=== PATIENT | female | born 1950 | race Caucasian/White ===

== ENCOUNTER → 2018-10-12 07:45 | Outpatient (CLI) | payer MEDICARE, OTHER, SELFPAY ==
--- NOTE | 2018-10-12 07:50 | DI.US.S_ITS ---
PROCEDURE: US ABDOMEN LIMITED INDICATIONS: liver u/s for surveillance with known cirrhosis TECHNIQUE: Real-time focused scanning was performed of the abdomen, with image documentation. COMPARISON: [facility], CT, ABDOMEN/PELVIS WITH CONTRAST, 02/26/2017, 2:20. FINDINGS: Liver is atrophic, course in echotexture and there is irregularity involving the hepatic capsule. No focal discrete hepatic mass. Limited Doppler assessment demonstrates hepatopedal flow within the main portal vein. IMPRESSION: Cirrhotic hepatic morphology redemonstrated and no discrete liver mass is seen. Dictated by: Joby Estrada [facility] Interpreted: Alex Chamorro MD on 10/12/2018 at 10:17 Approved by: Alex Chamorro M.D. on 10/12/2018 at 10:45
== END ==
PROVIDERS: PCP Family Medicine; Visit Provider Family Medicine
DX: K74.60 Unspecified cirrhosis of liver (principal)
CPT/HCPCS: 76705

== ENCOUNTER → 2018-10-26 11:16 | Outpatient (CLI) | payer MEDICARE, OTHER, SELFPAY ==
[2018-10-26 12:26] LABS: Add Manual Diff / Slide Review NO; Basophils Absolute Auto 100 /uL (0-100); Basophils Percent Auto 0.8 % (0-2); Eosinophils Absolute Auto 100 /uL (0-450); Eosinophils Percent Auto 1.6 % (2-4); Hematocrit 40.1 % (36-46); Hemoglobin 13.3 g/dL (12.0-16.0); Lymphocytes Absolute Auto 1800 /uL (1100-4500); Lymphocytes Percent Auto 24.8 % (25-40); Mean Corpuscular HGB Conc 33.1 % (30-36); Mean Corpuscular Hemoglobin 34.1 PG (26-34); Monocytes Absolute Auto 700 /uL (0-900); Monocytes Percent Auto 9.3 % (3-14); Neutrophils Absolute Auto 4600 /uL (1500-7000); Neutrophils Percent Auto 63.5 % (50-75); Platelet Count 292 X10^3/uL (150-400); Red Cell Distribution Width 13.7 % (11.6-14.8); White Blood Cell Count 7.3 X10^3/uL (4.5-11.0)
[2018-10-26 14:07] LABS: Magnesium 1.9 mg/dL (1.6-2.3)
[2018-10-26 14:08] LABS: Alanine Aminotransferase 56 IU/L (9-52); Albumin 4.5 g/dL (3.5-5.0); Albumin Globulin Ratio 1.3 (1.0-2.8); Alkaline Phosphatase 288 U/L (38-126); Aspartate Aminotransferase 57 IU/L (14-36); Bilirubin Total 2.3 mg/dL (0.2-1.3); Blood Urea Nitrogen 8 mg/dL (7-17); Carbon Dioxide 25 mmol/L (22-32); Chloride 101 mmol/L (98-107); Estimated Glomerular Filt Rate > 60.0 mL/min (>60); Globulin 3.4 g/dL (1.7-4.1); Glucose 121 mg/dL (80-110); HEMOLYSIS < 15 (0-50); Potassium 4.2 mmol/L (3.4-5.1); Sodium 140 mmol/L (137-145); Total Protein 7.9 g/dL (6.3-8.2)
[2018-10-26 14:40] LABS: Thyroid Stimulating Hormone 4.49 uIU/mL (0.47-4.68)
[2018-10-29 15:27] LABS: Lipoprofile NMR SEE SEPERATE REPORT
[2018-10-30 15:18] LABS: Alpha Fetoprotein 6.1 ng/mL (< 6.1)
== END ==
PROVIDERS: Family Provider Family Medicine; PCP Family Medicine; Visit Provider Specialist
DX: E78.2 Mixed hyperlipidemia (principal); I10 Essential (primary) hypertension; F10.20 Alcohol dependence, uncomplicated; N28.9 Disorder of kidney and ureter, unspecified; K74.60 Unspecified cirrhosis of liver; E03.9 Hypothyroidism, unspecified
CPT/HCPCS: 36415; 80053; 82105; 83704; 83735; 84443; 85025

== ENCOUNTER → 2018-12-20 13:10 | Outpatient (CLI) | payer MEDICARE, OTHER, SELFPAY ==
[2018-12-20 14:05] LABS: Alanine Aminotransferase 48 IU/L (9-52); Albumin 4.5 g/dL (3.5-5.0); Albumin Globulin Ratio 1.2 (1.0-2.8); Alkaline Phosphatase 278 U/L (38-126); Aspartate Aminotransferase 61 IU/L (14-36); BUN Creatinine Ratio 21.1 (6-22); Bilirubin Total 1.6 mg/dL (0.2-1.3); Blood Urea Nitrogen 19 mg/dL (7-17); Carbon Dioxide 28 mmol/L (22-32); Chloride 103 mmol/L (98-107); Estimated Glomerular Filt Rate > 60.0 mL/min (>60); Globulin 3.9 g/dL (1.7-4.1); Glucose 108 mg/dL (80-110); HEMOLYSIS < 15 (0-50); Magnesium 2.3 mg/dL (1.6-2.3); Potassium 4.7 mmol/L (3.4-5.1); Sodium 140 mmol/L (137-145); Total Protein 8.4 g/dL (6.3-8.2)
== END ==
PROVIDERS: Family Provider Family Medicine; PCP Family Medicine; Visit Provider Specialist
DX: R94.5 Abnormal results of liver function studies (principal); I10 Essential (primary) hypertension
CPT/HCPCS: 36415; 80053; 83735

== ENCOUNTER → 2019-02-07 15:50 | Outpatient (CLI) | payer MEDICARE, OTHER, SELFPAY ==
[2019-02-07 16:20] LABS: Add Manual Diff / Slide Review NO; Basophils Absolute Auto 100 /uL (0-100); Basophils Percent Auto 0.7 % (0-2); Eosinophils Absolute Auto 100 /uL (0-450); Eosinophils Percent Auto 1.2 % (2-4); Hematocrit 38.2 % (36-46); Hemoglobin 12.8 g/dL (12.0-16.0); Lymphocytes Absolute Auto 1500 /uL (1100-4500); Lymphocytes Percent Auto 16.5 % (25-40); Mean Corpuscular HGB Conc 33.6 % (30-36); Mean Corpuscular Hemoglobin 33.7 PG (26-34); Mean Corpuscular Volume 100.3 fL (80-100); Monocytes Absolute Auto 1000 /uL (0-900); Monocytes Percent Auto 11.5 % (3-14); Neutrophils Absolute Auto 6200 /uL (1500-7000); Neutrophils Percent Auto 70.1 % (50-75); Platelet Count 356 X10^3/uL (150-400); Red Blood Cell Count 3.81 X10^6/uL (4.0-5.2); White Blood Cell Count 8.8 X10^3/uL (4.5-11.0)
[2019-02-07 16:27] LABS: Prothrombin Time 11.5 SECONDS (10.1-12.7)
[2019-02-07 17:40] LABS: Alanine Aminotransferase 48 IU/L (9-52); Albumin 4.5 g/dL (3.5-5.0); Albumin Globulin Ratio 1.3 (1.0-2.8); Alkaline Phosphatase 295 U/L (38-126); Aspartate Aminotransferase 62 IU/L (14-36); BUN Creatinine Ratio 22.7 (6-22); Bilirubin Total 1.4 mg/dL (0.2-1.3); Blood Urea Nitrogen 34 mg/dL (7-17); Carbon Dioxide 28 mmol/L (22-32); Chloride 91 mmol/L (98-107); Estimated Glomerular Filt Rate 34.6 mL/min (>60); Globulin 3.6 g/dL (1.7-4.1); Glucose 106 mg/dL (80-110); HEMOLYSIS < 15 (0-50); Sodium 135 mmol/L (137-145); Total Protein 8.1 g/dL (6.3-8.2)
[2019-02-07 17:43] LABS: Potassium 5.7 mmol/L (3.4-5.1)
== END ==
PROVIDERS: Family Provider Family Medicine; PCP Family Medicine; Visit Provider Nurse Practitioner
DX: K74.60 Unspecified cirrhosis of liver (principal); R23.3 Spontaneous ecchymoses
CPT/HCPCS: 36415; 80053; 85025; 85610

== ENCOUNTER → 2019-03-05 13:38 | Outpatient (CLI) | payer MEDICARE, OTHER, SELFPAY ==
[2019-03-05 14:20] LABS: Alanine Aminotransferase 24 IU/L (9-52); Albumin 4.4 g/dL (3.5-5.0); Albumin Globulin Ratio 1.2 (1.0-2.8); Alkaline Phosphatase 246 U/L (38-126); Aspartate Aminotransferase 40 IU/L (14-36); BUN Creatinine Ratio 28.9 (6-22); Bilirubin Total 1.3 mg/dL (0.2-1.3); Blood Urea Nitrogen 26 mg/dL (7-17); Calcium 10.2 mg/dL (8.4-10.2); Carbon Dioxide 25 mmol/L (22-32); Chloride 97 mmol/L (98-107); Estimated Glomerular Filt Rate > 60.0 mL/min (>60); Globulin 3.8 g/dL (1.7-4.1); Glucose 121 mg/dL (80-110); HEMOLYSIS < 15 (0-50); Potassium 4.6 mmol/L (3.4-5.1); Sodium 133 mmol/L (137-145); Total Protein 8.2 g/dL (6.3-8.2)
[2019-03-05 15:30] LABS: Microalbumi Creatinin Ratio Ur 126.8 ug/mg CR (<30); Microalbumin Urine Random 10.4 mg/dL (0-1.6)
== END ==
PROVIDERS: PCP Family Medicine; Visit Provider Family Medicine
DX: N28.9 Disorder of kidney and ureter, unspecified (principal)
CPT/HCPCS: 36415; 80053; 82043; 82570

== ENCOUNTER → 2019-04-05 16:36 | Outpatient (CLI) | payer MEDICARE, OTHER, SELFPAY ==
--- NOTE | 2019-04-05 16:41 | DI.RAD.S_ITS ---
PROCEDURE: XR KNEE LT 3V INDICATIONS: Left knee pain TECHNIQUE: 3 views of the knee were acquired. COMPARISON: None. FINDINGS: Bones: No fractures or dislocations. Moderate tricompartment joint space loss and moderate marginal spur formation. No suspicious bony lesions. Soft tissues: No joint effusion. No suspicious soft tissue calcifications. IMPRESSION: No fractures or joint effusion. Tricompartment osteoarthritic changes. Dictated by: Emely Valdez M.D. on 04/05/2019 at 16:27 Approved by: Emely Valdez M.D. on 04/05/2019 at 16:27
--- NOTE | 2019-04-05 16:41 | DI.RAD.S_ITS ---
PROCEDURE: XR TIBIA FIBULA RT 2V INDICATIONS: Left knee pain TECHNIQUE: 2 views of the tibia and fibula were acquired. COMPARISON: None. FINDINGS: Bones: No fractures or dislocations. No suspicious bony lesions. Soft tissues: No suspicious soft tissue calcifications or masses. IMPRESSION: Intact left tibia and fibula. Dictated by: Emely Valdez M.D. on 04/05/2019 at 16:28 Approved by: Emely Valdez M.D. on 04/05/2019 at 16:28
== END ==
PROVIDERS: PCP Family Medicine; Visit Provider Registered Nurse
DX: M79.662 Pain in left lower leg (principal); M25.562 Pain in left knee
CPT/HCPCS: 73562; 73590

== ENCOUNTER → 2019-05-08 14:00 | Outpatient (CLI) | payer MEDICARE, OTHER, SELFPAY ==
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
== END ==
PROVIDERS: PCP Family Medicine; Visit Provider Registered Nurse
DX: M25.562 Pain in left knee (principal); S82.145A Nondisplaced bicondylar fracture of left tibia, initial encounter for closed fracture; S82.025A Nondisplaced longitudinal fracture of left patella, initial encounter for closed fracture; M17.12 Unilateral primary osteoarthritis, left knee; V89.2XXA Person injured in unspecified motor-vehicle accident, traffic, initial encounter
CPT/HCPCS: 73721

== ENCOUNTER → 2020-12-16 14:15 | Outpatient (CLI) | payer MEDICARE, OTHER, SELFPAY ==
[2020-12-16 14:44] LABS: Add Manual Diff / Slide Review NO; Basophils Absolute Auto 100 /uL (0-100); Eosinophils Absolute Auto 500 /uL (0-450); Eosinophils Percent Auto 5.7 % (2-4); Hematocrit 38.1 % (36-46); Hemoglobin 13.1 g/dL (12.0-16.0); Lymphocytes Absolute Auto 2100 /uL (1100-4500); Mean Corpuscular HGB Conc 34.4 % (30-36); Mean Corpuscular Hemoglobin 34.8 PG (26-34); Monocytes Absolute Auto 900 /uL (0-900); Monocytes Percent Auto 10.7 % (3-14); Neutrophils Absolute Auto 4500 /uL (1500-7000); Neutrophils Percent Auto 56.6 % (50-75); Platelet Count 249 X10^3/uL (150-400); Red Blood Cell Count 3.78 X10^6/uL (4.0-5.2); Red Cell Distribution Width 12.8 % (11.6-14.8)
[2020-12-16 14:50] LABS: Prothrombin Time 10.8 SECONDS (10.1-12.7)
[2020-12-16 14:53] LABS: PTT Partial Thromboplastin Tim 41 SECONDS (26.4-36.2)
[2020-12-16 17:15] LABS: Alanine Aminotransferase 49 IU/L (<35); Albumin Globulin Ratio 1.3 (1.0-2.8); Alkaline Phosphatase 372 U/L (38-126); Aspartate Aminotransferase 63 IU/L (14-36); BUN Creatinine Ratio 19.6 (6-22); Bilirubin Total 1.1 mg/dL (0.2-1.3); Blood Urea Nitrogen 19 mg/dL (7-17); Calcium 10.2 mg/dL (8.4-10.2); Carbon Dioxide 29 mmol/L (22-32); Chloride 100 mmol/L (98-107); Cholesterol 235 mg/dL (140-199); Estimated Glomerular Filt Rate 56.9 mL/min (>60); Globulin 3.1 g/dL (1.7-4.1); Glucose 101 mg/dL (80-110); HDL Cholesterol 107 mg/dL (40-60); HEMOLYSIS 17 (0-50); LDL Cholesterol Calculated 111 mg/dL (<100); Sodium 136 mmol/L (137-145); Total Protein 7.1 g/dL (6.3-8.2); Triglycerides 87 mg/dL (35-150)
[2020-12-16 17:34] LABS: Potassium 5.7 mmol/L (3.4-5.1)
[2020-12-16 17:43] LABS: Thyroid Stimulating Hormone 3.05 uIU/mL (0.47-4.68)
== END ==
PROVIDERS: PCP Family Medicine; Referring Provider Family Medicine; Visit Provider Family Medicine
DX: I10 Essential (primary) hypertension (principal); K74.60 Unspecified cirrhosis of liver; E03.9 Hypothyroidism, unspecified
CPT/HCPCS: 36415; 80053; 80061; 84443; 85025; 85610; 85730

== ENCOUNTER → 2020-12-17 11:01 | Outpatient (CLI) | payer MEDICARE, OTHER, SELFPAY ==
[2020-12-17 12:40] LABS: Creatinine Urine Random 29.3 mg/dL
[2020-12-17 12:46] LABS: Microalbumi Creatinin Ratio Ur 27.3 ug/mg CR (<30); Microalbumin Urine Random 0.8 mg/dL (0-1.6)
== END ==
PROVIDERS: PCP Family Medicine; Referring Provider Family Medicine; Visit Provider Family Medicine
DX: I10 Essential (primary) hypertension (principal)
CPT/HCPCS: 82043; 82570

== ENCOUNTER → 2021-01-19 08:41 | Outpatient (CLI) | payer MEDICARE, OTHER, SELFPAY ==
--- NOTE | 2021-01-19 08:42 | DI.US.S_ITS ---
PROCEDURE: US ABDOMEN LIMITED INDICATIONS: CIRRHOSIS SURVEILANCE TECHNIQUE: Real-time scanning was performed of the abdominal and retroperitoneal organs, with image documentation. COMPARISON: [facility], , US ABDOMEN LIMITED, 10/12/2018, 8:41. FINDINGS: Liver: Liver is normal in size and homogeneous in echotexture, hyperechoic and mildly coarse, without focal masses or intrahepatic biliary distension. Mild nodular margination of the capsular border of the liver is noted. Portal vein is patent with appropriate direction of flow into the liver. No ascites found. IMPRESSION: A combination of fatty infiltration and cirrhosis at the liver parenchyma appears present, without mass lesion or intrahepatic biliary distension. Nodular margination of the capsular border of the liver is mild, indicating cirrhotic change. No ascites, normal direction of flow into the liver through the portal vein is documented. Dictated by: Duong Arreola M.D. on 01/19/2021 at 10:57 Approved by: Duong Arreola M.D. on 01/19/2021 at 11:01
== END ==
PROVIDERS: PCP Family Medicine; Referring Provider Family Medicine; Visit Provider Family Medicine
DX: K74.60 Unspecified cirrhosis of liver (principal)
CPT/HCPCS: 76705

== ENCOUNTER → 2021-02-04 13:08 | Outpatient (CLI) | payer MEDICARE, OTHER, SELFPAY ==
--- NOTE | 2021-02-04 | DI.ECHO.S_ITS ---
[place] [facility]---------+ [facility] +---------+ : : [address] : : : : [id number] : : : : Phone: [phone]+ Echocardiogram Report + + :Name: SHAWN CASTELLANO Study Date: 02/04/2021 Height: 62 in : :[facility] ReadingLocation: Weight: 173 lb: : Gender: Female BSA: 1.8 m2 : :: 1950 Age: 70 yrs : :Reason For Study: ASD : :Ordering Physician: Alfreda : :Vinny Archibald Performed By: Tarun Grey : :Referring: ALFREDA ARCHIBALD : + + Interpretation Summary The left ventricle is normal in size. Left ventricular systolic function is normal. The ejection fraction is estimated to be 55-60%. There has been no significant change since the previous exam. There are no focal wall motion abnormalities. The right ventricle is normal in size and function. The right ventricular systolic pressure is estimated to be at least 25 mmHg based on an estimated right atrial pressure of 3 mm Hg. The left atrium is borderline dilated. Right atrial size is normal. There is no Doppler evidence for an interatrial shunt. Injection of contrast documented no interatrial shunt. There is no significant valvular heart disease. MR has decreased since prior study. The aortic root is normal size. Procedure: A two-dimensional transthoracic echocardiogram with color flow and Doppler was performed. The study quality was technically difficult. Comparison is made with the echocardiogram of 11/20/2017. The patient was in sinus rhythm with heart rates between 65-75 bpm during the exam. Left Ventricle: The left ventricle is normal in size. Left ventricular wall thickness is borderline increased. Left ventricular systolic function is normal. The ejection fraction is estimated to be 55-60%. There has been no significant change since the previous exam. There are no focal wall motion abnormalities. Diastolic function could not be accurately assessed due to contradictory data. Right Ventricle: The right ventricle is normal in size and function. Atria: The left atrium is borderline dilated. Right atrial size is normal. There is no Doppler evidence for an interatrial shunt. Injection of contrast documented no interatrial shunt. Mitral Valve: There is mild mitral annular calcification. There is trace mitral regurgitation. Aortic Valve: The aortic valve is normal in structure and function. No aortic regurgitation is present. Tricuspid Valve: The tricuspid valve is normal in structure and function. There is a trace or physiologic amount of tricuspid regurgitation. The right ventricular systolic pressure is estimated to be at least 25 mmHg based on an estimated right atrial pressure of 3 mm Hg. Pulmonic Valve: The pulmonic valve is not well seen, but is grossly normal. There is no pulmonic valvular regurgitation. There is no significant valvular heart disease. Great Vessels: The aortic root is normal size. The dimensions of the ascending aorta are normal. The IVC is of normal diameter and collapses greater than 50% with a sniff. This suggests a low right atrial pressure of 3 mm Hg. Pericardium/ Pleura There is no pericardial effusion. There is no pleural effusion. MMode/2D Measurements & Calculations LVIDd: 4.9 cm LVOT diam: 2.0 cm LVIDs: 3.0 cm Ao root diam: 2.9 cm FS: 38.0 % asc Aorta Diam: 3.0 cm IVSd: 1.1 cm LVPWd: 0.96 cm LV kerns. diameter/BSA (cm/m^2): 2.7 LV sys. diameter/BSA (cm/m^2): 1.7 LA A2 area: 19.6 cm2 RA long axis: 4.5 cm LA A4 area: 17.3 cm2 RA area: 16.7 cm2 LA length (vol): 5.2 cm RA vol: 52.6 ml LA vol: 55.9 ml RA : 29.3 ml/m2 LA vol index: 31.1 ml/m2 TAPSE: 1.9 cm Doppler Measurements & Calculations Ao V2 max: 106.9 cm/sec LVOT Max Mateo: 97.6 cm/sec Ao V2 mean: 79.6 cm/sec LV V1 max P.8 mmHg Ao max P.6 mmHg LV V1 VTI: 21.9 cm Ao mean P.7 mmHg AQUILINO(I,D): 2.9 cm2 Ao V2 VTI: 23.2 cm AQUILINO(V,D): 2.8 cm2 sev ratio: 0.95 AQUILINO indexed to BSA (cm^2/m^2): 1.6 MV E max mateo: 74.9 cm/sec TR max mateo: 234.9 cm/sec MV A max mateo: 69.9 cm/sec TR max P.1 mmHg MV E/A: 1.1 PA pr(Accel): 41.3 mmHg Med Peak E' Mateo: 3.7 cm/sec E/E' med: 20.0 Lat Peak E' Mateo: 5.3 cm/sec E/E' lat: 14.1 E/e' average: 17.1 MV dec time: 0.17 sec [facility] 68.1 ml Reading Physician:06:58 PM
== END ==
PROVIDERS: PCP Family Medicine; Referring Provider Specialist; Visit Provider Specialist
DX: Q21.1 Atrial septal defect (principal)
CPT/HCPCS: 93306

== ENCOUNTER → 2021-03-30 08:52 | Outpatient (CLI) | payer MEDICARE, OTHER, SELFPAY ==
[2021-03-30 10:24] LABS: HEMOLYSIS 50 (0-50); Potassium 4.5 mmol/L (3.4-5.1)
== END ==
PROVIDERS: PCP Family Medicine; Referring Provider Family Medicine; Visit Provider Family Medicine
DX: E87.5 Hyperkalemia (principal)
CPT/HCPCS: 36415; 84132

== ENCOUNTER → 2024-01-15 11:18 | Outpatient (CLI) | payer MEDICARE, OTHER, SELFPAY ==
[2024-01-15 11:48] LABS: Add Manual Diff / Slide Review NO; Basophils Absolute Auto 100 /uL (0-100); Basophils Percent Auto 1.3 % (0-2); Eosinophils Absolute Auto 400 /uL (0-450); Eosinophils Percent Auto 4.3 % (2-4); Hematocrit 42.9 % (36-46); Hemoglobin 14.7 g/dL (12.0-16.0); Lymphocytes Absolute Auto 2600 /uL (1100-4500); Lymphocytes Percent Auto 30.9 % (25-40); Mean Corpuscular HGB Conc 34.2 % (30-36); Mean Corpuscular Hemoglobin 35.4 PG (26-34); Mean Corpuscular Volume 103.5 fL (80-100); Monocytes Absolute Auto 700 /uL (0-900); Monocytes Percent Auto 8.7 % (3-14); Neutrophils Absolute Auto 4700 /uL (1500-7000); Neutrophils Percent Auto 54.8 % (50-75); Platelet Count 235 X10^3/uL (150-400); Red Blood Cell Count 4.14 X10^6/uL (4.0-5.2); Red Cell Distribution Width 13.7 % (11.6-14.8); White Blood Cell Count 8.6 X10^3/uL (4.5-11.0)
[2024-01-15 12:17] LABS: Alanine Aminotransferase 37 IU/L (<35); Albumin 3.9 g/dL (3.5-5.0); Albumin Globulin Ratio 1.1 (1.0-2.8); Alkaline Phosphatase 321 U/L (38-126); Aspartate Aminotransferase 101 IU/L (14-36); BUN Creatinine Ratio 11.1 (6-22); Bilirubin Total 1.6 mg/dL (0.2-1.3); Blood Urea Nitrogen 8 mg/dL (7-17); Calcium 9.3 mg/dL (8.4-10.2); Carbon Dioxide 28 mmol/L (22-32); Chloride 101 mmol/L (98-107); Cholesterol 261 mg/dL (140-199); Estimated Glomerular Filt Rate > 60 mL/min (>60); Globulin 3.6 g/dL (1.7-4.1); Glucose 123 mg/dL (80-110); HEMOLYSIS < 15 (0-50); Potassium 4.3 mmol/L (3.4-5.1); Sodium 136 mmol/L (137-145); Total Protein 7.5 g/dL (6.3-8.2); Triglycerides 160 mg/dL (35-150)
[2024-01-15 12:39] LABS: HDL Cholesterol 122 mg/dL (40-60); LDL Cholesterol Calculated 107 mg/dL (<100)
[2024-01-15 12:44] LABS: TSH w/ Reflex to FT4 6.57 uIU/mL (0.47-4.68)
[2024-01-15 13:11] LABS: Free T4, Direct Thyroxine 1.73 ng/dL (0.78-2.19)
[2024-01-17 10:46] LABS: Hemoglobin A1C% w Est Avg Glu 5.4 % (4.0-6.0)
== END ==
PROVIDERS: PCP Family Medicine; Referring Provider Family Medicine; Visit Provider Family Medicine
DX: I10 Essential (primary) hypertension (principal); E03.9 Hypothyroidism, unspecified; K70.40 Alcoholic hepatic failure without coma; E78.5 Hyperlipidemia, unspecified; R73.09 Other abnormal glucose; Z79.899 Other long term (current) drug therapy
CPT/HCPCS: 80053; 80061; 83036; 84439; 84443; 85025

== ENCOUNTER → 2024-02-14 10:50 | Outpatient (CLI) | payer MEDICARE, OTHER, SELFPAY ==
--- NOTE | 2024-02-14 10:51 | DI.MG.S_ITS ---
BILATERAL DIGITAL SCREENING MAMMOGRAM 3D/2D WITH CAD: 02/14/2024 CLINICAL: Routine screening. Comparison is made to exams dated: 06/21/2010 mammogram, 07/22/2004 localization, and 06/21/2004 mammogram - [facility]. Both breasts are heterogeneously dense, which may obscure small masses (category c / 51-75% glandular tissue). Current study was also evaluated with a Computer Aided Detection (CAD) system. There are benign post operative findings in the right breast. No significant masses, calcifications, or other findings are seen in either breast. There has been no significant interval change. IMPRESSION: BENIGN There is no mammographic evidence of malignancy. A 1 year screening mammogram is recommended. Based on the Tyrer Cuzick model (a risk assessment model) the patient's lifetime risk is 5.5% and her 10 year risk is 4.1%. According to the ACR, ACS, and NCCN guidelines, an annual breast MRI exam along with mammogram is recommended if the patient's lifetime risk is 20% or greater. This exam was interpreted at Station ID: [id number]. NOTE: For mammograms, a report in lay terms will be sent to the patient. Approximately 15% of breast malignancies will not be visualized mammographically. In the management of a palpable breast mass, a negative mammogram must not discourage biopsy of a clinically suspicious lesion. Electronically Signed By: Oneyda Montoya M.D., Ph.D. elana/jasvir:02/14/2024 12:59:13 letter sent: Normal Exam ACR BI-RADS Category 2: Benign Finding(s) 3342F
== END ==
LOC: MAMMO 10:51
PROVIDERS: PCP Family Medicine; Referring Provider Family Medicine; Visit Provider Family Medicine
DX: Z12.31 Encounter for screening mammogram for malignant neoplasm of breast (principal); R92.333 Mammographic heterogeneous density, bilateral breasts
CPT/HCPCS: 77063; 77067

== ENCOUNTER 2024-04-10 16:14 | Emergency (ER) | payer MEDICARE, OTHER, SELFPAY ==
[2024-04-10] VITALS (10 sets, daily range): BP systolic 168–175; BP diastolic 78–88; PULSE 64–78; RESP 16; TEMP 37; O2SAT 94–99
--- NOTE | 2024-04-10 16:28 | DI.RAD.S_ITS ---
PROCEDURE: XR FOOT LT MIN 3V INDICATIONS: r/o foot fx. anterior foot pain. Trauma. TECHNIQUE: 3 views of the foot were acquired. COMPARISON: None. FINDINGS: Bones: No fractures or dislocations. No suspicious bony lesions. Plantar calcaneal enthesophyte. Soft tissues: No tibiotalar joint effusion. Achilles tendon appears normal. IMPRESSION: No acute bony abnormality. Dictated by: Gareth Taveras M.D. on 04/10/2024 at 16:04 Approved by: Gareth Taveras M.D. on 04/10/2024 at 16:06
--- NOTE | 2024-04-10 18:50 | ED_ITS ---
HPI - Extremity Injury (Lower) General Chief Complaint: Extremity Injury, Lower Stated Complaint: GLF, L Ankle Pain Time Seen by Provider: 04/10/24 17:57 Source: patient and family Mode of arrival: EMS History of Present Illness HPI Narrative: 73-year-old female presents by EMS from home for left foot/ankle pain. Patient was walking inside when she tripped, and heard a ?pop? in her left lower extremity. Subsequently unable to get off of the couch due to pain. No medications taken prior to arrival. Patient denies any other accident or injury, denies hitting her head Related Data Previous Rx's Medication Instructions Recorded lorazepam 1 mg tablet 0 mg (0 x 1 mg) PO Q6HP PRN ##15 10/17/17 atorvastatin 20 mg tablet (Lipitor) 20 mg PO HS #90 tabs 07/15/22 furosemide 40 mg tablet 60 mg (1.5 x 40 mg) PO QDAY #135 07/15/22 tabs hydralazine 25 mg tablet 25 mg PO BID #180 tabs 07/15/22 levothyroxine 100 mcg tablet 100 mcg PO QAM #90 tabs 07/15/22 (Synthroid) metoprolol succinate 100 mg 100 mg PO QDAY #90 tabs 07/15/22 tablet,extended release 24 hr spironolactone 50 mg tablet 50 mg PO QDAY #90 tabs 07/15/22 (Aldactone) Allergies Allergy/AdvReac Type Severity Reaction Status Date / Time No Known Drug Allergies Allergy Unverified 06/07/22 11:17 Patient History Medical History ASD (atrial septal defect) (08/2016) Alcoholic liver disease (2016) End-stage liver disease (2015) CHF (congestive heart failure) Compression fracture of L1 lumbar vertebra Surgical History History of esophagogastroduodenoscopy (EGD) (05/23/17) History of colonoscopy (05/23/17) Social History marital status: household members: spouse lives independently: Yes caregiver/support person: No housing: house occupational status: previously employed Smoking Status: Never smoker second hand exposure: No alcohol intake: current substance use type: does not use Smoking Status: Never smoker alcohol intake frequency: 3 or more drinks per day Alcohol type: beer Substance Use Type: does not use Exam Initial Vital Signs Initial Vital Signs: Vital Signs Temperature 98.6 F 04/10/24 16:21 Pulse Rate 78 04/10/24 16:21 Respiratory Rate 16 04/10/24 16:21 Blood Pressure 175/78 H 04/10/24 16:21 Pulse Oximetry 99 04/10/24 16:21 Oxygen Delivery Method Room Air 04/10/24 16:21 Const: Awake, alert, no acute distress, nontoxic appearing MSK: No deformity, generalized tenderness to palpation along medial left foot and medial ankle Skin: Warm, Dry, intact, no rashes Neuro: AO x3, CN II-XII grossly intact, moves all extremities Course Orders Ordered: Discontinued Medications Acetaminophen (Acetaminophen 325 Mg Tablet) 975 mg PO NOW ONE Stop: 04/10/24 18:57 Last Admin: 04/10/24 19:03 Dose: 975 mg Documented By: THIEN Vital Signs Vital signs: Vital Signs - 8 hr 04/10/24 16:21 Temperature 98.6 F Pulse Rate 78 Respiratory Rate 16 Blood Pressure 175/78 H Pulse Oximetry 99 Oxygen Delivery Method Room Air MDM - Extremity Injury (Lower) Imaging Data Extremity x-ray #1: Radiologist's Impression: PROCEDURE: XR ANKLE LT MIN 3V INDICATIONS: TRIP AND FALL, PAIN TECHNIQUE: 3 views of the ankle were acquired. COMPARISON: None. FINDINGS: Bones: No acute displaced fracture or dislocation. The ankle mortise appears intact. Plantar calcaneal enthesopathy. Mild midfoot degenerative changes. Soft tissues: No suspicious calcifications. Suspected soft tissue swelling. IMPRESSION: No acute displaced fracture. No dislocation. Mild scattered degenerative changes. If there is high concern for further derangement, consider MRI evaluation. Dictated by: Malick Denis M.D. on 04/10/2024 at 19:55 Approved by: Malick Denis M.D. on 04/10/2024 at 19:56 Extremity x-ray #2: Radiologist's Impression: PROCEDURE: XR FOOT LT MIN 3V INDICATIONS: r/o foot fx. anterior foot pain. Trauma. TECHNIQUE: 3 views of the foot were acquired. COMPARISON: None. FINDINGS: Bones: No fractures or dislocations. No suspicious bony lesions. Plantar alin caneal enthesophyte. Soft tissues: No tibiotalar joint effusion. Achilles tendon appears normal. IMPRESSION: No acute bony abnormality. Dictated by: Gareth Taveras M.D. on 04/10/2024 at 16:04 Approved by: Gareth Taveras M.D. on 04/10/2024 at 16:06 [facility] Narrative Medical decision making narrative: Trip with foot/ankle pain. Negative x-rays. Rice instructions counseled at bedside. Placed in splint. Discharge Plan Departure Patient Disposition: Home Clinical Impression: Foot sprain Qualifiers: Encounter type: initial encounter Laterality: left Qualified Code(s): S93.602A - Unspecified sprain of left foot, initial encounter Instructions: DI for Foot Sprain Activity Restrictions/Additional Instructions: Your x-rays today did not show any fracture in your ankle or foot. Wear the Glen wrap bandage for compression and comfort. Whenever you are resting elevate your foot above heart level to decrease swelling and pain. You may take Tylenol and apply ice as needed to areas of pain. Prescriptions: No Action lorazepam 1 MG tablet 0 mg PO Q6HP PRNQty: 15 3RF atorvastatin [Lipitor] 20 mg tablet 20 mg PO HS Qty: 90 3RF furosemide 40 mg tablet 60 mg PO QDAY Qty: 135 3RF hydralazine 25 mg tablet 25 mg PO BID Qty: 180 3RF levothyroxine [Synthroid] 100 mcg tablet 100 mcg PO QAM Qty: 90 3RF metoprolol succinate 100 mg tablet extended release 24 hr 100 mg PO QDAY Qty: 90 3RF spironolactone [Aldactone] 50 mg tablet 50 mg PO QDAY Qty: 90 3RF Referrals: Cathy Bell MD [Primary Care Provider] - Stand Alone Forms: Patient Portal/API
[2024-04-10] MEDS: ACETAMINOPHEN 325 MG TABLET 975 MG PO (19:03)
== END 2024-04-10 21:15 | disposition home or self-care (01) ==
PROVIDERS: Emergency Provider Emergency Medicine; PCP Family Medicine
DX: S93.602A Unspecified sprain of left foot, initial encounter (principal); W18.40XA Slipping, tripping and stumbling without falling, unspecified, initial encounter
CPT/HCPCS: 73610; 73630; 99283

== ENCOUNTER 2024-08-04 13:27 | Emergency (ER) | payer MEDICARE, OTHER, SELFPAY ==
[2024-08-04] VITALS (9 sets, daily range): BP systolic 156–199; BP diastolic 76–96; PULSE 66–81; RESP 20; TEMP 36.4–36.6; O2SAT 94–98; BMI 30.5
--- NOTE | 2024-08-04 14:09 | EKG_ITS ---
[id number] [address] Test Date: 2024-08-04 Pat Name: Heather Corbin Department: Room: Gender: Female Dermatology Nurse: FRANCK : 1950 Requested By: Order Number: [id number] Reading MD: Darrell Anguiano MD Measurements Intervals Hunter Rate: 75 P: 73 GA: 150 QRS: -13 QRSD: 76 T: 69 QT: 458 QTc: 511 Interpretive Statements Normal sinus rhythm Nonspecific ST and T wave abnormality Electronically Signed On 08-05-2024 7:31:12 PST by Darrell Anguiano MD
--- NOTE | 2024-08-04 14:14 | ED.ABDPAIN ---
HPI - Abdominal Pain <Rosy Verdugo DO - Last Filed: 08/13/24 00:49> General Chief Complaint: Abdominal Pain Stated Complaint: liver problems,jaundice, constipation Time Seen by Provider: 08/04/24 13:43 Source: patient and family Mode of arrival: Wheelchair History of Present Illness HPI narrative: Patient is a 74-year-old female history of alcohol abuse, alcoholic liver disease congestive heart failure presenting today with constipation. She reports it has been 6 days since she has had a bowel movement. She denies any significant abdominal pain. No nausea or vomiting. Daughter reports that she does look a little more yellow than normal. Patient reports that she drinks 3 cores light a day and her last drink was last evening. Daughter reports that she drinks more like 10. Patient is not shaking fever chills or confusion. No numbness tingling weakness. She tried taking some l GoLYTELY at home for constipation she says she did not have any bowel movement daughter reports that her depends did have some mild diarrhea. Patient reports that she stopped taking all of her medication for a few months now just and feel like she would anymore but she restarted last evening she also says that she quit drinking alcohol last night. Related Data Previous Rx's Medication Instructions Recorded lorazepam 1 mg tablet 0 mg (0 x 1 mg) PO Q6HP PRN ##15 10/17/17 atorvastatin 20 mg tablet (Lipitor) 20 mg PO HS #90 tabs 07/15/22 furosemide 40 mg tablet 60 mg (1.5 x 40 mg) PO QDAY #135 07/15/22 tabs hydralazine 25 mg tablet 25 mg PO BID #180 tabs 07/15/22 levothyroxine 100 mcg tablet 100 mcg PO QAM #90 tabs 07/15/22 (Synthroid) metoprolol succinate 100 mg 100 mg PO QDAY #90 tabs 07/15/22 tablet,extended release 24 hr spironolactone 50 mg tablet 50 mg PO QDAY #90 tabs 07/15/22 (Aldactone) lactulose 20 gram/30 mL oral 20 g (30 mL) PO BID PRN 08/04/24 solution constipation #1,200 mL Allergies Allergy/AdvReac Type Severity Reaction Status Date / Time No Known Drug Allergies Allergy Unverified 08/07/24 14:24 Patient History <Rosy Verdugo DO - Last Filed: 08/13/24 00:49> Medical History (Updated 08/07/24 @ 18:47 by Clarence Stack MD) ASD (atrial septal defect) (08/2016) Alcoholic liver disease (2016) End-stage liver disease (2016) CHF (congestive heart failure) Compression fracture of L1 lumbar vertebra Surgical History History of esophagogastroduodenoscopy (EGD) (05/23/17) History of colonoscopy (05/23/17) Social History marital status: household members: spouse lives independently: Yes caregiver/support person: No housing: house occupational status: previously employed Smoking Status: Never smoker second hand exposure: No alcohol intake: current substance use type: does not use Smoking Status: Never smoker alcohol intake frequency: 3 or more drinks per day Alcohol type: beer Substance Use Type: does not use Exam <Rosy Verdugo DO - Last Filed: 08/13/24 00:49> Initial Vital Signs Initial Vital Signs: Vital Signs Temperature 97.6 F 08/04/24 13:34 Pulse Rate 81 08/04/24 13:34 Respiratory Rate 20 08/04/24 13:34 Blood Pressure 156/76 H 08/04/24 13:34 Pulse Oximetry 95 08/04/24 13:34 Oxygen Delivery Method Room Air 08/04/24 13:34 GENERAL: Alert 74-year-old female HEENT: Head atraumatic,EOMI, pupils reactive, slight icterus noted in I face symmetric, moist mucous membranes CARDIOVASCULAR: Regular rate and rhythm without murmurs, rubs or gallops. RESPIRATORY: Breath sounds equal bilaterally, no wheezes rales or rhonchi. ABDOMEN: Soft, nontender. Normoactive bowel sounds all 4 quadrants. No guarding or rebound. No right upper quadrant pain no fluid wave no significant distention normal bowel sounds EXTREMITIES: Normal range of motion, no clubbing or edema. Neurovascularly intact NEUROLOGICAL: Alert and oriented x4.Normal gait and speech. Cranial nerves II through XII grossly intact. E Commerce Manager strength equal bilaterally no asterixis SKIN: Mild jaundice noted Warm, dry, no laceration, no petechiae, no rashes or lesions. <Esau Richey DO - Last Filed: 08/04/24 20:44> Initial Vital Signs Initial Vital Signs: Vital Signs Temperature 97.6 F 08/04/24 13:34 Pulse Rate 81 08/04/24 13:34 Respiratory Rate 20 08/04/24 13:34 Blood Pressure 156/76 H 08/04/24 13:34 Pulse Oximetry 95 08/04/24 13:34 Oxygen Delivery Method Room Air 08/04/24 13:34 Course <Rosy Verdugo DO - Last Filed: 08/13/24 00:49> Orders Ordered: Discontinued Medications Lidocaine HCl (Lidocaine 2% (Glydo) 6 Ml Gel) 6 ml TOP NOW ONE Stop: 08/04/24 17:10 Last Admin: 08/04/24 17:19 Dose: 6 ml Documented By: THIEN Mineral Oil (Mineral Oil 1 Each Enema) 1 each CA NOW ONE Stop: 08/04/24 15:32 Last Admin: 08/04/24 15:46 Dose: 1 each Documented By: THIEN Ondansetron HCl (Ondansetron 4 Mg/2 Ml Inj) 4 mg IV NOW PRN PRN Reason: Nausea And Vomiting Ondansetron HCl (Ondansetron 4 Mg Odt) 4 mg PO NOW PRN PRN Reason: Nausea And Vomiting Vital Signs Vital signs: Vital Signs - 8 hr 08/04/24 13:34 08/04/24 14:06 08/04/24 14:30 Temperature 97.6 F Pulse Rate 81 74 72 Respiratory Rate 20 Blood Pressure 156/76 H Pulse Oximetry 95 95 94 Oxygen Delivery Method Room Air 08/04/24 15:34 08/04/24 15:35 08/04/24 15:35 Temperature Pulse Rate 72 72 Respiratory Rate Blood Pressure 160/77 H Pulse Oximetry 98 Oxygen Delivery Method <Esau Richey DO - Last Filed: 08/04/24 20:44> Orders Ordered: Discontinued Medications Lidocaine HCl (Lidocaine 2% (Glydo) 6 Ml Gel) 6 ml TOP NOW ONE Stop: 08/04/24 17:10 Last Admin: 08/04/24 17:19 Dose: 6 ml Documented By: THIEN Mineral Oil (Mineral Oil 1 Each Enema) 1 each CA NOW ONE Stop: 08/04/24 15:32 Last Admin: 11/10/24 15:46 Dose: 1 each Documented By: THIEN Ondansetron HCl (Ondansetron 4 Mg/2 Ml Inj) 4 mg IV NOW PRN PRN Reason: Nausea And Vomiting Ondansetron HCl (Ondansetron 4 Mg Odt) 4 mg PO NOW PRN PRN Reason: Nausea And Vomiting Vital Signs Vital signs: Vital Signs - 8 hr 08/04/24 13:34 08/04/24 14:06 08/04/24 14:30 Temperature 97.6 F Pulse Rate 81 74 72 Respiratory Rate 20 Blood Pressure 156/76 H Pulse Oximetry 95 95 94 Oxygen Delivery Method Room Air 08/04/24 15:34 08/04/24 15:35 08/04/24 15:35 Temperature Pulse Rate 72 72 Respiratory Rate Blood Pressure 160/77 H Pulse Oximetry 98 Oxygen Delivery Method MDM - Abdominal Pain <Rosy Verdugo, - Last Filed: 08/13/24 00:49> Lab Data 08/04/24 14:04 08/04/24 14:04 Labs: Lab Results 08/04/24 08/04/24 08/04/24 Range/Units 14:04 14:30 17:46 WBC 9.5 (4.5-11.0) X10^3/uL RBC 3.77 L (4.0-5.2) X10^6/uL Hgb 13.9 (12.0-16.0) g/dL Hct 40.3 (36-46) % MCV 107.1 H (80-100) fL MCH 36.9 H (26-34) PG MCHC 34.5 (30-36) % RDW 14.0 (11.6-14.8) % Plt Count 215 (150-400) X10^3/uL Neut % (Auto) 80.7 H (50-75) % Lymph % (Auto) 12.9 L (25-40) % Nash % (Auto) 5.6 (3-14) % Eos % (Auto) 0.1 L (2-4) % Baso % (Auto) 0.7 (0-2) % Neut # (Auto) 7600 H (4133-4347) /uL Lymph # (Auto) 1200 (7407-3189) /uL Nash # (Auto) 500 (0-900) /uL Eos # (Auto) 0 (0-450) /uL Baso # (Auto) 100 (0-100) /uL PT 11.5 (9.4-12.5) SECONDS INR 1.0 (0.9-1.3) APTT 37 H (25.1-36.5) SECONDS D-Dimer Cancelled Sodium 132 L (137-145) mmol/L Potassium 3.1 L (3.4-5.1) mmol/L Chloride 98 (98-107) mmol/L Carbon Dioxide 26 (22-32) mmol/L BUN 11 (7-17) mg/dL Creatinine 0.72 (0.52-1.04) mg/dL Estimated GFR > 60 (>60) mL/min BUN/Creatinine Ratio 15.3 (6-22) Glucose 134 H (80-110) mg/dL Calcium 8.7 (8.4-10.2) mg/dL Total Bilirubin 3.7 H (0.2-1.3) mg/dL AST 96 H (14-36) IU/L ALT 34 (<35) IU/L Alkaline Phosphatase 459 H (38-126) U/L Total Protein 7.1 (6.3-8.2) g/dL Albumin 3.3 L (3.5-5.0) g/dL Globulin 3.8 (1.7-4.1) g/dL Albumin/Globulin Ratio 0.9 L (1.0-2.8) Lipase 77 (23-300) U/L Urine Color Yellow Urine Appearance Cloudy Urine pH 5.5 (4.5-8.0) Ur Specific [place] <=1.005 (1.000-1.035) Urine Protein Negative (Negative) Urine Glucose (UA) Negative (Negative) g/dL Urine Ketones Negative (NEGATIVE) Urine Occult Blood 1+ H (Negative) Urine Nitrate Negative (Negative) Urine Bilirubin Negative (NEGATIVE) Urine Urobilinogen 1.0 (0.2) E.U./dL Ur Leukocyte Esterase 3+ H (NEGATIVE) Urine RBC 1-5/hpf (0-5/HPF) Urine WBC >100/hpf H (0-5/HPF) Ur Squamous Epith Cells 0-1 /hpf (0-5/HPF) Urine Bacteria Many (>30) H (None) Ur Culture Indicated? Specimen cultured Vol Urine Centrifuged 10ml (spun) Imaging Data US - abdomen: Radiologist's Impression: NAZ: US ABDOMEN LIMITED INDICATIONS: ruq elevated bili TECHNIQUE: Real-time scanning was performed of the abdominal and retroperitoneal organs, with image documentation. COMPARISON: [facility], US, US ABDOMEN LIMITED, 01/19/2021, 9:11. FINDINGS: Of note this is a technically challenging exam and image quality is overall suboptimal. Liver: Liver is normal in size with coarsened echotexture and a micronodular contour. There is no focal hepatic lesion. Gallbladder: Multiple tiny mobile dependent stones are present within the gallbladder. There is no wall thickening or pericholecystic fluid. Negative sonographic Miguel's sign. Biliary ducts: Intrahepatic bile ducts are non-dilated. Extrahepatic bile duct caliber measures 5 mm. Normal is 6-7 mm or less in diameter, or 10 mm or less post-cholecystectomy. Pancreas: Suboptimally evaluated. Miscellaneous: No free abdominal fluid. IMPRESSION: 1. Coarsened hepatic echotexture with micronodular contour suggestive of cirrhosis. 2. Cholelithiasis without evidence of cholecystitis Dictated by: Chiara Castle M.D. on 08/04/2024 at 14:1 CT scan - abdomen/pelvis: Radiologist's Impression: PROCEDURE: CT ABDOMEN PELVIS W CON INDICATIONS: ab pain, jaundice TECHNIQUE: After the administration of intravenous contrast, axial sections acquired from the lung bases to the pubic symphysis. Coronal and sagittal reformats were performed. For radiation dose reduction, the following was used: automated exposure control, adjustment of mA and/or kV according to patient size. COMPARISON: None. FINDINGS: Image quality: Diagnostic. Lower Chest: No significant findings. ABDOMEN: Liver: Cirrhotic without solid mass. Gallbladder: Multiple tiny dependent stones are present without wall thickening. Biliary ducts: No biliary dilation. Pancreas: No ductal dilation. Spleen: Size is within normal limits. Adrenal Glands: No adrenal nodules. Kidneys and Ureters: No hydronephrosis. No solid mass. No complex renal cystic lesion which requires follow up. Stomach and Bowel: There is a moderately large stool ball within the rectum and the remainder of the colon is fluid-filled with some air-fluid levels. There is no distension of the colon. Small bowel is of normal caliber without obstruction. Peritoneum: No abnormal intraperitoneal fluid. No free air. Ventral Wall: There is a fat containing umbilical hernia and a separate ventral hernia with a fascial defect measuring less than 1 cm just cranial to the umbilicus. This hernia sac contains both fat and fluid. Abdominal Nodes: No retroperitoneal or mesenteric adenopathy by size criteria. Vessels: Aorta and inferior vena cava are normal in size. PELVIS: Pelvic Organs: Unremarkable. Bladder: No bladder wall thickening, accounting for underdistention. Pelvic Nodes: No enlarged lymph nodes. Miscellaneous: No inguinal hernias are seen. Bones: No aggressive osseous abnormality. A remote L1 compression fracture is shown and there are degenerative changes throughout the spine. IMPRESSION: 1. Findings concerning for obstipation. Two. Small ventral abdominal hernia with fluid in fat in the hernia sac. Correlate with pain in this area as this may represent strangulated mesenteric fat. 3. Other chronic findings as above. Dictated by: Chiara Castle M.D. on 08/04/2024 at 14:08 ECG Data Interpretation: normal sinus rhythm rate 75 CA interval 150 QRS 76 no ischemia MDM Narrative Medical decision making narrative: MDM CC: Constipation jaundice Complicating co-morbidities: Alcoholic liver disease continues to drink alcohol. Patient reports that she stopped taking all of her medications Data collected from: Daughter and previous chart Medical records reviewed: PCP note in 2021 with the last primary care note. She was seen in the ED in line Differential considered: Bowel obstruction constipation mass Exam documented above, pertinent findings include: Mild jaundice no icterus A&O x3 abdomen soft nontender no positive fluid wave Lab Test results independently reviewed as above. Pertinent findings: CBC shows WBC 9 point hemoglobin 13.9 hematocrit 40 MCV 107 platelets 210 INR 1.0 PTT 37 CMP shows mild hypokalemia with a potassium of 3.1 sodium 132, Cr. 0.72 Bilirubin 3.7 AST 96 ALT 34 alk-phos 495 previously she had a bilirubin of 1.6 AST 101 ALT 37 in December 2023 Lipase 77 Independently reviewed EKG as above: No ischemia Imaging studies independently reviewed: Ultrasound shows cirrhosis with cholelithiasis and no cholecystitis CT shows obstipation without bowel obstruction, also ventral abdominal hernia, patient's abdomen is nontender Consultations: None Treatments: Enema Re-evaluations: Patient has tried to use the restroom multiple times she does have multiple episodes of liquid brown stool coming out of her rectum but no actual solid movement. She is unable to urinate bladder scan shows bowel 300 cc in her bladder. Attempted rectal disimpaction poop was right in rectal vault was able to remove some. Patient tried to have further bowel movement but was unsuccessful. She was still unable to empty her bladder. In and out catheter was done and hope that she could have a bowel movement Discussion: Patient is 74-year-old female history of alcohol abuse presenting today with constipation. She has not had a bowel movement for 6 days. Blood work has been reviewed. She does have mild elevation bilirubin of 3.7 with mild elevation liver enzymes. This is likely due to her alcoholism it has been this high previously. However her last blood work did show a bilirubin of 1.6. CT confirms constipation without mass. Attempted enema and digital disimpaction in the emergency department unsuccessful. Patient's bladder is also becoming more distended in and out Tillman catheter was placed. Waiting for patient to have a bowel movement or be able to urinate before going home. She may require Tillman catheter at discharge. Patient is signed out to , anticipate discharge may need Tillman catheter 1800: Received sign-out by Dr. Driscoll, patient came in complaining jaundice, CT scan consistent with constipation, patient was with urinary retention secondary to this. She has been disimpacted and is not having any issues with constipation at this time, however will bladder scan to determine if patient is still retaining, <Esau Richey, DO - Last Filed: 08/04/24 20:44> Lab Data Labs: Lab Results 08/04/24 08/04/24 08/04/24 Range/Units 14:04 14:30 17:46 WBC 9.5 (4.5-11.0) X10^3/uL RBC 3.77 L (4.0-5.2) X10^6/uL Hgb 13.9 (12.0-16.0) g/dL Hct 40.3 (36-46) % MCV 107.1 H (80-100) fL MCH 36.9 H (26-34) PG MCHC 34.5 (30-36) % RDW 14.0 (11.6-14.8) % Plt Count 215 (150-400) X10^3/uL Neut % (Auto) 80.7 H (50-75) % Lymph % (Auto) 12.9 L (25-40) % Nash % (Auto) 5.6 (3-14) % Eos % (Auto) 0.1 L (2-4) % Baso % (Auto) 0.7 (0-2) % Neut # (Auto) 7600 H (2374-1849) /uL Lymph # (Auto) 1200 (6406-1379) /uL Nash # (Auto) 500 (0-900) /uL Eos # (Auto) 0 (0-450) /uL Baso # (Auto) 100 (0-100) /uL PT 11.5 (9.4-12.5) SECONDS INR 1.0 (0.9-1.3) APTT 37 H (25.1-36.5) SECONDS D-Dimer Cancelled Sodium 132 L (137-145) mmol/L Potassium 3.1 L (3.4-5.1) mmol/L Chloride 98 (98-107) mmol/L Carbon Dioxide 26 (22-32) mmol/L BUN 11 (7-17) mg/dL Creatinine 0.72 (0.52-1.04) mg/dL Estimated GFR > 60 (>60) mL/min BUN/Creatinine Ratio 15.3 (6-22) Glucose 134 H (80-110) mg/dL Calcium 8.7 (8.4-10.2) mg/dL Total Bilirubin 3.7 H (0.2-1.3) mg/dL AST 96 H (14-36) IU/L ALT 34 (<35) IU/L Alkaline Phosphatase 459 H (38-126) U/L Total Protein 7.1 (6.3-8.2) g/dL Albumin 3.3 L (3.5-5.0) g/dL Globulin 3.8 (1.7-4.1) g/dL Albumin/Globulin Ratio 0.9 L (1.0-2.8) Lipase 77 (23-300) U/L Urine Color Yellow Urine Appearance Cloudy Urine pH 5.5 (4.5-8.0) Ur Specific [place] <=1.005 (1.000-1.035) Urine Protein Negative (Negative) Urine Glucose (UA) Negative (Negative) g/dL Urine Ketones Negative (NEGATIVE) Urine Occult Blood 1+ H (Negative) Urine Nitrate Negative (Negative) Urine Bilirubin Negative (NEGATIVE) Urine Urobilinogen 1.0 (0.2) E.U./dL Ur Leukocyte Esterase 3+ H (NEGATIVE) Urine RBC 1-5/hpf (0-5/HPF) Urine WBC >100/hpf H (0-5/HPF) Ur Squamous Epith Cells 0-1 /hpf (0-5/HPF) Urine Bacteria Many (>30) H (None) Ur Culture Indicated? Specimen cultured Vol Urine Centrifuged 10ml (spun) MDM Narrative Medical decision making narrative: MDM CC: Constipation jaundice Complicating co-morbidities: Alcoholic liver disease continues to drink alcohol. Patient reports that she stopped taking all of her medications Data collected from: Daughter and previous chart Medical records reviewed: PCP note in 2021 with the last primary care note. She was seen in the ED in line Differential considered: Bowel obstruction constipation mass Exam documented above, pertinent findings include: Mild jaundice no icterus A&O x3 abdomen soft nontender no positive fluid wave Lab Test results independently reviewed as above. Pertinent findings: CBC shows WBC 9 point hemoglobin 13.9 hematocrit 40 MCV 107 platelets 210 INR 1.0 PTT 37 CMP shows mild hypokalemia with a potassium of 3.1 sodium 132, Cr. 0.72 Bilirubin 3.7 AST 96 ALT 34 alk-phos 495 previously she had a bilirubin of 1.6 AST 101 ALT 37 in December 2023 Lipase 77 Independently reviewed EKG as above: No ischemia Imaging studies independently reviewed: Ultrasound shows cirrhosis with cholelithiasis and no cholecystitis CT shows obstipation without bowel obstruction, also ventral abdominal hernia, patient's abdomen is nontender Consultations: None Treatments: Enema Re-evaluations: Patient has tried to use the restroom multiple times she does have multiple episodes of liquid brown stool coming out of her rectum but no actual solid movement. She is unable to urinate bladder scan shows bowel 300 cc in her bladder. Attempted rectal disimpaction poop was right in rectal vault was able to remove some. Patient tried to have further bowel movement but was unsuccessful. She was still unable to empty her bladder. In and out catheter was done and hope that she could have a bowel movement Discussion: Patient is 74-year-old female history of alcohol abuse presenting today with constipation. She has not had a bowel movement for 6 days. Blood work has been reviewed. She does have mild elevation bilirubin of 3.7 with mild elevation liver enzymes. This is likely due to her alcoholism it has been this high previously. However her last blood work did show a bilirubin of 1.6. CT confirms constipation without mass. Attempted enema and digital disimpaction in the emergency department unsuccessful. Patient's bladder is also becoming more distended in and out Tillman catheter was placed. Waiting for patient to have a bowel movement or be able to urinate before going home. She may require Tillman catheter at discharge. Patient is signed out to , anticipate discharge may need Tillman catheter 1800: Received sign-out by Dr. Driscoll, patient came in complaining jaundice, CT scan consistent with constipation, patient was with urinary retention secondary to this. She has been disimpacted and is not having any issues with constipation at this time, however will bladder scan to determine if patient is still retaining, 2000: Patient re-evaluated still with urinary retention therefore will place Tillman catheter and the patient instructed to follow up with Urology in outpatient setting we will give prophylactic antibiotics for this patient will be safe for discharge home with outpatient follow up Discharge Plan Departure Patient Disposition: Home Clinical Impression: Acute alcoholic liver disease, Acute urinary retention Constipation Qualifiers: Constipation type: slow transit constipation Qualified Code(s): K59.01 - Slow transit constipation Instructions: DI for Constipation Activity Restrictions/Additional Instructions: *You have been diagnosed with constipation liver disease *What to do: At this time you do have liver disease which is why your skin is mildly yellow. It is from alcohol. I do recommend that you go to detox for alcohol withdrawal if you choose *Continue to take medications as directed Lactulose as needed for constipation sent to [facility]. *Follow up with your primary care provider in 2-3 days or call [phone] *Return to ER if you should have increasing abdominal pain nausea vomiting [or] any new, worsening or concerning symptoms Prescriptions: New lactulose 20 gram/30 mL solution 20 g PO BID PRN (Reason: constipation) Qty: 1200 0RF No Action lorazepam 1 MG tablet 0 mg PO Q6HP PRNQty: 15 3RF atorvastatin [Lipitor] 20 mg tablet 20 mg PO HS Qty: 90 3RF furosemide 40 mg tablet 60 mg PO QDAY Qty: 135 3RF hydralazine 25 mg tablet 25 mg PO BID Qty: 180 3RF levothyroxine [Synthroid] 100 mcg tablet 100 mcg PO QAM Qty: 90 3RF metoprolol succinate 100 mg tablet extended release 24 hr 100 mg PO QDAY Qty: 90 3RF spironolactone [Aldactone] 50 mg tablet 50 mg PO QDAY Qty: 90 3RF Referrals: Ata Biswas DO [Physician] - (Urinary retention with Tillman catheter) Cathy Bell MD [Primary Care Provider] - Stand Alone Forms: Patient Portal/API/Survey
[2024-08-04 14:15] LABS: Add Manual Diff / Slide Review NO; Basophils Absolute Auto 100 /uL (0-100); Basophils Percent Auto 0.7 % (0-2); Eosinophils Absolute Auto 0 /uL (0-450); Eosinophils Percent Auto 0.1 % (2-4); Hematocrit 40.3 % (36-46); Hemoglobin 13.9 g/dL (12.0-16.0); Lymphocytes Absolute Auto 1200 /uL (1100-4500); Lymphocytes Percent Auto 12.9 % (25-40); Mean Corpuscular HGB Conc 34.5 % (30-36); Mean Corpuscular Hemoglobin 36.9 PG (26-34); Mean Corpuscular Volume 107.1 fL (80-100); Monocytes Absolute Auto 500 /uL (0-900); Monocytes Percent Auto 5.6 % (3-14); Neutrophils Absolute Auto 7600 /uL (1500-7000); Neutrophils Percent Auto 80.7 % (50-75); Platelet Count 215 X10^3/uL (150-400); Red Blood Cell Count 3.77 X10^6/uL (4.0-5.2); White Blood Cell Count 9.5 X10^3/uL (4.5-11.0)
[2024-08-04 14:21] LABS: Alanine Aminotransferase 34 IU/L (<35); Albumin 3.3 g/dL (3.5-5.0); Albumin Globulin Ratio 0.9 (1.0-2.8); Alkaline Phosphatase 459 U/L (38-126); Aspartate Aminotransferase 96 IU/L (14-36); BUN Creatinine Ratio 15.3 (6-22); Bilirubin Total 3.7 mg/dL (0.2-1.3); Blood Urea Nitrogen 11 mg/dL (7-17); Calcium 8.7 mg/dL (8.4-10.2); Carbon Dioxide 26 mmol/L (22-32); Chloride 98 mmol/L (98-107); Estimated Glomerular Filt Rate > 60 mL/min (>60); Globulin 3.8 g/dL (1.7-4.1); Glucose 134 mg/dL (80-110); HEMOLYSIS < 15 (0-50); Lipase 77 U/L (23-300); Potassium 3.1 mmol/L (3.4-5.1); Sodium 132 mmol/L (137-145); Total Protein 7.1 g/dL (6.3-8.2)
--- NOTE | 2024-08-04 14:23 | DI.CT.S_ITS ---
PROCEDURE: CT ABDOMEN PELVIS W CON INDICATIONS: ab pain, jaundice TECHNIQUE: After the administration of intravenous contrast, axial sections acquired from the lung bases to the pubic symphysis. Coronal and sagittal reformats were performed. For radiation dose reduction, the following was used: automated exposure control, adjustment of mA and/or kV according to patient size. COMPARISON: None. FINDINGS: Image quality: Diagnostic. Lower Chest: No significant findings. ABDOMEN: Liver: Cirrhotic without solid mass. Gallbladder: Multiple tiny dependent stones are present without wall thickening. Biliary ducts: No biliary dilation. Pancreas: No ductal dilation. Spleen: Size is within normal limits. Adrenal Glands: No adrenal nodules. Kidneys and Ureters: No hydronephrosis. No solid mass. No complex renal cystic lesion which requires follow up. Stomach and Bowel: There is a moderately large stool ball within the rectum and the remainder of the colon is fluid-filled with some air-fluid levels. There is no distension of the colon. Small bowel is of normal caliber without obstruction. Peritoneum: No abnormal intraperitoneal fluid. No free air. Ventral Wall: There is a fat containing umbilical hernia and a separate ventral hernia with a fascial defect measuring less than 1 cm just cranial to the umbilicus. This hernia sac contains both fat and fluid. Abdominal Nodes: No retroperitoneal or mesenteric adenopathy by size criteria. Vessels: Aorta and inferior vena cava are normal in size. PELVIS: Pelvic Organs: Unremarkable. Bladder: No bladder wall thickening, accounting for underdistention. Pelvic Nodes: No enlarged lymph nodes. Miscellaneous: No inguinal hernias are seen. Bones: No aggressive osseous abnormality. A remote L1 compression fracture is shown and there are degenerative changes throughout the spine. IMPRESSION: 1. Findings concerning for obstipation. Two. Small ventral abdominal hernia with fluid in fat in the hernia sac. Correlate with pain in this area as this may represent strangulated mesenteric fat. 3. Other chronic findings as above. Dictated by: Chiara Castle M.D. on 08/04/2024 at 14:08 Approved by: Chiara Castle M.D. on 08/04/2024 at 14:13
--- NOTE | 2024-08-04 14:25 | DI.US.S_ITS ---
NAZ: US ABDOMEN LIMITED INDICATIONS: ruq elevated bili TECHNIQUE: Real-time scanning was performed of the abdominal and retroperitoneal organs, with image documentation. COMPARISON: [facility], US, US ABDOMEN LIMITED, 01/19/2021, 9:11. FINDINGS: Of note this is a technically challenging exam and image quality is overall suboptimal. Liver: Liver is normal in size with coarsened echotexture and a micronodular contour. There is no focal hepatic lesion. Gallbladder: Multiple tiny mobile dependent stones are present within the gallbladder. There is no wall thickening or pericholecystic fluid. Negative sonographic Miguel's sign. Biliary ducts: Intrahepatic bile ducts are non-dilated. Extrahepatic bile duct caliber measures 5 mm. Normal is 6-7 mm or less in diameter, or 10 mm or less post-cholecystectomy. Pancreas: Suboptimally evaluated. Miscellaneous: No free abdominal fluid. IMPRESSION: 1. Coarsened hepatic echotexture with micronodular contour suggestive of cirrhosis. 2. Cholelithiasis without evidence of cholecystitis Dictated by: Chiara Castle M.D. on 08/04/2024 at 14:15 Approved by: Chiara Castle M.D. on 08/04/2024 at 14:18
[2024-08-04 14:43] LABS: Prothrombin Time 11.5 SECONDS (9.4-12.5)
[2024-08-04 14:46] LABS: PTT Partial Thromboplastin Tim 37 SECONDS (25.1-36.5)
[2024-08-04] MEDS: MINERAL OIL 1 EACH ENEMA PR (15:46)
[2024-08-04] MEDS: LIDOCAINE 2% (GLYDO) 6 ML GEL TOP (17:19)
--- NOTE | 2024-08-04 17:24 | PC.NURSE ---
Pt up to bsc multiple times and unable to produce bm. Pt c/o rectal pain and some brown leakage is commode. Dr Verdugo attempted digital disimpation.
[2024-08-04 17:52] LABS: Appearance Urine UA CLOUDY; Bilirubin Urine UA NEGATIVE (NEGATIVE); Color Urine UA YELLOW; Glucose Urine UA NEGATIVE (Negative); Ketones Urine UA NEGATIVE (NEGATIVE); Leukocyte Esterase Urine UA 3+ (NEGATIVE); Nitrite Urine UA NEGATIVE (Negative); Occult Blood Urine UA 1+ (Negative); Protein Urine UA NEGATIVE (Negative); Specific Gravity Urine UA <=1.005 (1.000-1.035)
[2024-08-04 17:53] LABS: pH Urine UA 5.5 (4.5-8.0)
[2024-08-04 18:00] LABS: Bacteria Urine Many (>30); Culture Indicated Urine Specimen Cultured; RBC Urine 1-5/HPF (0-5/HPF); Squamous Epithelial Cell Urine 0-1 /HPF (0-5/HPF); Urine Volume 10mL (spun); WBC Urine >100/HPF (0-5/HPF)
--- NOTE | 2024-08-04 19:43 | PC.NURSE ---
attempted to void on her own, only had leaky bm. Bladder scan indicates 120 ml in the bladder.
--- NOTE | 2024-08-04 21:23 | PC.NURSE ---
Garcia cath placed per verbal order from Dr Richey for acute urinary retention. Pericare cleansed and garcia placed per protocol. Pt tolerated well. Garcia care teaching done with pt and her daughter, they verbalized understanding.
== END 2024-08-04 21:25 | disposition home or self-care (01) ==
PROVIDERS: Emergency Medicine; Emergency Provider Student in an Organized Health Care Education/Training Program; PCP Family Medicine
DX: K59.00 Constipation, unspecified (principal); R33.8 Other retention of urine; K70.10 Alcoholic hepatitis without ascites; R10.9 Unspecified abdominal pain
CPT/HCPCS: 36415; 51701; 51798; 74177; 76705; 80053; 81001; 83690; 85025; 85610; 85730; 87077; 87086; 87186; 93005; 93010; 99284; Q9967

== ENCOUNTER → 2024-08-30 10:15 | Outpatient (CLI) | payer MEDICARE, OTHER, SELFPAY ==
[2024-08-30 13:13] LABS: Alanine Aminotransferase 39 IU/L (<35); Albumin 3.1 g/dL (3.5-5.0); Albumin Globulin Ratio 0.9 (1.0-2.8); Alkaline Phosphatase 409 U/L (38-126); Aspartate Aminotransferase 84 IU/L (14-36); BUN Creatinine Ratio 12.9 (6-22); Bilirubin Total 1.5 mg/dL (0.2-1.3); Blood Urea Nitrogen 9 mg/dL (7-17); Calcium 9.1 mg/dL (8.4-10.2); Carbon Dioxide 28 mmol/L (22-32); Chloride 104 mmol/L (98-107); Estimated Glomerular Filt Rate > 60 mL/min (>60); Globulin 3.3 g/dL (1.7-4.1); Glucose 154 mg/dL (80-110); HEMOLYSIS 17 (0-50); Potassium 5.1 mmol/L (3.4-5.1); Sodium 136 mmol/L (137-145); Total Protein 6.4 g/dL (6.3-8.2)
[2024-08-30 13:42] LABS: Free T3, Triiodothyronine Free 3.39 pg/mL (2.77-5.27); Free T4, Direct Thyroxine 1.11 ng/dL (0.78-2.19)
[2024-08-30 14:32] LABS: Folate 3.1 ng/mL (2.76-20.0); Vitamin B12 337 pg/mL (239-931)
== END ==
PROVIDERS: PCP Family Medicine; Referring Provider Family Medicine; Visit Provider Family Medicine
DX: E03.9 Hypothyroidism, unspecified (principal); F10.20 Alcohol dependence, uncomplicated
CPT/HCPCS: 36415; 80053; 82607; 82746; 84439; 84443; 84481

== ENCOUNTER 2025-07-22 09:03 | Inpatient (IN) | payer MEDICARE, OTHER, SELFPAY ==
[2025-07-22] VITALS (19 sets, daily range): BP systolic 130–177; BP diastolic 67–85; PULSE 84–98; RESP 16–25; TEMP 36.4–36.6; O2SAT 90–99; BMI 28.0
--- NOTE | 2025-07-22 09:22 | DI.RAD.S_ITS ---
PROCEDURE: XR CHEST 1V INDICATIONS: weakness, rectal bleeding. TECHNIQUE: One view of the chest was acquired. COMPARISON: [facility], , CHEST 1 VIEW, 01/22/2017, 10:27. FINDINGS: Surgical changes and devices: None. Lungs and pleura: Lungs are clear. No pleural effusions or pneumothorax. Mediastinum: Mediastinal contours appear normal. Heart size is normal. Bones and chest wall: No suspicious bony lesions. Overlying soft tissues appear unremarkable. IMPRESSION: No acute cardiopulmonary abnormality is seen. Dictated by: Dileep Mac M.D. on 07/22/2025 at 10:29 Approved by: Dileep Mac M.D. on 07/22/2025 at 10:29
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
[2025-07-22 09:40] LABS: Add Manual Diff / Slide Review NO; Hematocrit 30.3 % (36-46); Hemoglobin 10.6 g/dL (12.0-16.0); Lymphocytes Absolute Auto 3300 /uL (1100-4500); Mean Corpuscular HGB Conc 34.8 % (30-36); Mean Corpuscular Hemoglobin 41.6 PG (26-34); Mean Corpuscular Volume 119.4 fL (80-100); Platelet Count 136 X10^3/uL (150-400)
[2025-07-22 09:41] LABS: INR 1.2 (0.9-1.3); Prothrombin Time 13.5 SECONDS (9.4-12.5)
[2025-07-22 09:44] LABS: PTT Partial Thromboplastin Tim 31 SECONDS (25.1-36.5)
[2025-07-22 09:48] LABS: Alanine Aminotransferase 60 IU/L (<35); Albumin 2.9 g/dL (3.5-5.0); Albumin Globulin Ratio 0.7 (1.0-2.8); Alkaline Phosphatase 362 U/L (38-126); Blood Urea Nitrogen 43 mg/dL (7-17); Calcium 9.1 mg/dL (8.4-10.2); Carbon Dioxide 23 mmol/L (22-32); Chloride 107 mmol/L (98-107); Estimated Glomerular Filt Rate 48 mL/min (>60); Globulin 4.2 g/dL (1.7-4.1); Glucose 98 mg/dL (70-99); HEMOLYSIS < 15 (0-50); Lipase 119 U/L (23-300); Potassium 4.5 mmol/L (3.4-5.1); Sodium 138 mmol/L (137-145); Total Protein 7.1 g/dL (6.3-8.2)
[2025-07-22 09:50] LABS: Anisocytosis 1+
[2025-07-22 10:05] LABS: Ammonia (NH3) 29 umol/L (9-30)
--- NOTE | 2025-07-22 10:37 | DI.CT.S_ITS ---
PROCEDURE: CT ANGIO ABD/PEL GI BLEED INDICATIONS: black stools, etoh abuse TECHNIQUE: After the administration of intravenous contrast, 2.5 mm sections acquired from the diaphragm to the iliac crests. 10 mm maximum intensity projection (MIP) coronal and sagittal reformats were then performed. For radiation dose reduction, the following was used: automated exposure control. COMPARISON: [facility], CT, CT ABDOMEN PELVIS W CON, 08/04/2024, 14:30. FINDINGS: Image quality: Diagnostic. Abdominal aorta: No aortic aneurysm or evidence of acute aortic syndrome. Mesenteric arteries: Moderate proximal stenosis of the celiac and SMA. ALEJANDRA grossly patent. Renal arteries: Grossly patent renal arteries. Lower chest: Unremarkable. Question question mesh repair of a left diaphragmatic hernia. ABDOMEN: Liver: Small shrunken cirrhotic liver without identifiable liver mass. Gallbladder: Numerous small gallstones. No gallbladder wall thickening. No gallbladder distention. Biliary ducts: No biliary dilation. Pancreas: No ductal dilation. Spleen: Size is within normal limits. Adrenal Glands: No adrenal nodules. Kidneys and Ureters: No hydronephrosis. No solid mass. No complex renal cystic lesion which requires follow up. Stomach and Bowel: Normal colonic caliber, without significant wall thickening. No acute extravasation noted. Mild diverticulosis. Peritoneum: Development of moderately large abdominal and pelvic ascites. No free air. Ventral Wall: No hernia. Abdominal Nodes: No retroperitoneal or mesenteric adenopathy by size criteria. Vessels: Aorta, as above. Normal IVC. PELVIS: Pelvic Organs: Uterus is surgically absent. No adnexal masses.. Bladder: Unremarkable. Pelvic Nodes: No enlarged lymph nodes. Miscellaneous: No inguinal hernias are seen. Bones: No aggressive osseous abnormality. Old severe L1 compression. IMPRESSION: 1. No acute hemorrhage identified during the study. 2. Moderate celiac and SMA stenosis. This is most commonly an incidental finding. 3. Shrunken cirrhotic liver. 4. Development of moderately large ascites. 5. Cholelithiasis. Dictated by: Dileep Mac M.D. on 07/22/2025 at 11:14 Approved by: Dileep Mac M.D. on 07/22/2025 at 11:21
[2025-07-22] MEDS: PANTOPRAZOLE 40 MG VIAL 80 MG IV (10:50)
[2025-07-22 12:07] LABS: Appearance Urine UA CLEAR; Bilirubin Urine UA 2+ (NEGATIVE); Color Urine UA ORANGE; Glucose Urine UA NEGATIVE (Negative); Ketones Urine UA NEGATIVE (NEGATIVE); Leukocyte Esterase Urine UA 3+ (NEGATIVE); Nitrite Urine UA POSITIVE (Negative); Occult Blood Urine UA 3+ (Negative); Protein Urine UA 1+ (Negative); Specific Gravity Urine UA 1.010 (1.000-1.035); Urobilinogen Urine UA 2.0 E.U./dL (0.2)
[2025-07-22 12:11] LABS: pH Urine UA 7.0 (4.5-8.0)
[2025-07-22 12:14] LABS: Culture Indicated Urine Specimen Cultured; Ictotest Urine Positive (Negative)
[2025-07-22] MEDS: OCTREOTIDE 100 MCG/ML VIAL 50 MCG IV (12:55)
[2025-07-22] MEDS: OCTREOTIDE 500 MCG in SODIUM CHLORIDE 0.9% 100 ML 10.1 MCG IV (12:55)
--- NOTE | 2025-07-22 15:55 | PM.HP.IH.1 ---
History of Present Illness History of Present Illness Chief complaint: GI bleed with Melena Narrative: Pt is a 75yo woman with CHF, hypothyroidism, alcoholic cirrhosis, and HTN who presented after being found at home stuck on the couch for several days. The pts daughter reports that she usually checks on her parents once/week. This week when she went to check on them, she found her mother stuck on the couch. She had been there for 3-4 days, and was sitting in her excrement in a filthy depends. Her daughter notes that for the past couple weeks her mother has been seeming slightly more confused. Last week, she hadn't left the house recently, which is unusual for her. The pt today states that she just was sleeping and resting. She doesn't really recall how long she was on the couch for. The pt denies any acute concerns today. She denies any recent chest pain, SOB, abdominal pain. She states that she urinates frequently but denies any dysuria. She denies any recent emesis, nausea, or change in her bowel habits. Her daughter does note there was a significant amount of blood near the pts depends on the couch, but it is unclear where it came from. The pts daughters state that she started to appear slightly more yellow in color in the last couple weeks, but it is acutely worse today. The pt does endorse continuing to consume three Coors Lights/day on average. [facility] Medical History (Updated 07/22/25 @ 12:30 by Mary Franklin DO) ASD (atrial septal defect) (08/2016) Alcoholic liver disease (2015) End-stage liver disease (2015) CHF (congestive heart failure) Compression fracture of L1 lumbar vertebra Surgical History History of esophagogastroduodenoscopy (EGD) (05/23/17) History of colonoscopy (05/23/17) Social History marital status: household members: spouse, significant other and friend(s) lives independently: Yes caregiver/support person: No housing: house occupational status: previously employed Smoking Status: Never smoker second hand exposure: No alcohol intake: current substance use type: does not use Meds Home Medications and Allergies Home Medications ?Medication ?Instructions ?Recorded ?Confirmed ?Type atorvastatin 20 mg tablet (Lipitor) 20 mg PO HS #90 tabs 07/15/22 07/22/25 Rx furosemide 40 mg tablet 60 mg (1.5 x 40 mg) PO QDAY #135 07/15/22 07/22/25 Rx tabs hydralazine 25 mg tablet 25 mg PO BID #180 tabs 07/15/22 07/22/25 Rx levothyroxine 100 mcg tablet 100 mcg PO QAM #90 tabs 07/15/22 07/22/25 Rx (Synthroid) metoprolol succinate 100 mg 100 mg PO QDAY #90 tabs 07/15/22 07/22/25 Rx tablet,extended release 24 hr spironolactone 50 mg tablet 50 mg PO QDAY #90 tabs 07/15/22 07/22/25 Rx (Aldactone) lactulose 20 gram/30 mL oral 20 g (30 mL) PO BID PRN 08/04/24 07/22/25 Rx solution constipation #1,200 mL lorazepam 1 mg tablet 1 mg PO Q6HP PRN alcohol withdrawal 07/22/25 07/22/25 History Allergies Allergy/AdvReac Type Severity Reaction Status Date / Time No Known Drug Allergies Allergy Verified 07/22/25 13:36 Exam Vital Signs (past 8 hours): - 07/22/25 09:00 07/22/25 09:26 07/22/25 09:30 Temperature 97.9 F Pulse Rate 98 H 98 H 94 H Respiratory Rate 25 H 18 Blood Pressure 172/85 H Pulse Oximetry 90 L 99 Oxygen Delivery Method Room Air Oxygen Flow Rate 07/22/25 09:53 07/22/25 09:53 07/22/25 10:00 Temperature Pulse Rate 98 H 93 H Respiratory Rate 20 20 Blood Pressure 156/74 H Pulse Oximetry 97 97 Oxygen Delivery Method Nasal Cannula Oxygen Flow Rate 2 07/22/25 10:00 07/22/25 10:38 07/22/25 10:58 Temperature Pulse Rate 86 Respiratory Rate 23 Blood Pressure 150/77 H 173/76 H Pulse Oximetry 99 Oxygen Delivery Method Nasal Cannula Oxygen Flow Rate 2 07/22/25 10:58 07/22/25 11:00 07/22/25 11:00 Temperature Pulse Rate 89 91 H Respiratory Rate 20 17 Blood Pressure 156/74 H Pulse Oximetry 99 99 Oxygen Delivery Method Oxygen Flow Rate 07/22/25 11:15 07/22/25 11:15 07/22/25 11:30 Temperature Pulse Rate 84 93 H Respiratory Rate 16 17 Blood Pressure 162/74 H Pulse Oximetry 98 99 Oxygen Delivery Method Nasal Cannula Oxygen Flow Rate 2 07/22/25 11:30 07/22/25 11:45 07/22/25 11:45 Temperature Pulse Rate 96 H Respiratory Rate 21 Blood Pressure 169/78 H 177/77 H Pulse Oximetry 99 Oxygen Delivery Method Nasal Cannula Oxygen Flow Rate 2 07/22/25 12:00 07/22/25 12:01 07/22/25 12:01 Temperature Pulse Rate 87 98 H Respiratory Rate 24 Blood Pressure 147/71 H Pulse Oximetry 98 99 Oxygen Delivery Method Oxygen Flow Rate 07/22/25 12:15 07/22/25 12:15 07/22/25 12:30 Temperature Pulse Rate 92 H 91 H Respiratory Rate 24 20 Blood Pressure 144/67 H Pulse Oximetry 97 94 Oxygen Delivery Method Nasal Cannula Room Air Oxygen Flow Rate 2 07/22/25 12:30 07/22/25 12:46 07/22/25 12:46 Temperature Pulse Rate 91 H Respiratory Rate 20 Blood Pressure 130/72 177/78 H Pulse Oximetry 93 Oxygen Delivery Method Oxygen Flow Rate Oxygen Delivery Method Room Air Oxygen Flow Rate 2 Narrative Exam Narrative: Gen: NAD, sitting comfortably in bed HEENT: significant scleral icterus, normocephalic, atraumatic Neck: no LAD CV: RRR, no murmurs Resp: clear to auscultation bilaterally Abd: soft, nontender, distended, fluid wave present, normoactive bowel sounds Ext: no edema Skin: jaundiced Neuro: oriented to person and place but not fully time, no gross deficits Objective Labs 07/22/25 08:55 07/22/25 08:55 Labs: Laboratory Results - last 24 hr 07/22/25 07/22/25 07/22/25 08:55 09:42 09:52 WBC 10.3 RBC 2.54 L Hgb 10.6 L Hct 30.3 L MCV 119.4 H MCH 41.6 H MCHC 34.8 RDW 16.0 H Plt Count 136 L Neut % (Auto) 61.3 Lymph % (Auto) 31.9 [place] % (Auto) 5.5 Eos % (Auto) 0.6 L Baso % (Auto) 0.7 Neut # (Auto) 6300 Lymph # (Auto) 3300 [place] # (Auto) 600 Eos # (Auto) 100 Baso # (Auto) 100 RBC Morphology Not Reportable Anisocytosis 1+ H PT 13.5 H INR 1.2 APTT 31 Sodium 138 Potassium 4.5 Chloride 107 Carbon Dioxide 23 BUN 43 H Creatinine 1.20 H Estimated GFR 48 L BUN/Creatinine Ratio 35.8 H Glucose 98 Calcium 9.1 Total Bilirubin 11.4 H AST 155 H ALT 60 H Alkaline Phosphatase 362 H Ammonia 29 Total Protein 7.1 Albumin 2.9 L Globulin 4.2 H Albumin/Globulin Ratio 0.7 L Lipase 119 Urine Color Urine Appearance Urine pH Ur Specific [place] Urine Protein Urine Glucose (UA) Urine Ketones Urine Occult Blood Urine Nitrate Urine Bilirubin Ur Bilirubin Confirm Urine Urobilinogen Ur Leukocyte Esterase Urine RBC Urine WBC Ur Squamous Epith Cells Urine Bacteria Ur Culture Indicated? Vol Urine Centrifuged Blood Type A Positive Antibody Screen Negative 07/22/25 11:46 WBC RBC Hgb Hct MCV MCH MCHC RDW Plt Count Neut % (Auto) Lymph % (Auto) [place] % (Auto) Eos % (Auto) Baso % (Auto) Neut # (Auto) Lymph # (Auto) [place] # (Auto) Eos # (Auto) Baso # (Auto) RBC Morphology Anisocytosis PT INR APTT Sodium Potassium Chloride Carbon Dioxide BUN Creatinine Estimated GFR BUN/Creatinine Ratio Glucose Calcium Total Bilirubin AST ALT Alkaline Phosphatase Ammonia Total Protein Albumin Globulin Albumin/Globulin Ratio Lipase Urine Color [place] Urine Appearance Clear Urine pH 7.0 Ur Specific [place] 1.010 Urine Protein 1+ H Urine Glucose (UA) Negative Urine Ketones Negative Urine Occult Blood 3+ H Urine Nitrate Positive H Urine Bilirubin 2+ H Ur Bilirubin Confirm Positive H Urine Urobilinogen 2.0 H Ur Leukocyte Esterase 3+ H Urine RBC 10-30/hpf H Urine WBC 30-100/hpf H Ur Squamous Epith Cells None seen Urine Bacteria Many (>30) H Ur Culture Indicated? Specimen cultured Vol Urine Centrifuged 10ml (spun) Blood Type Antibody Screen Assessment & Plan Assessment & Plan narrative: Pt is a 75yo woman with CHF, hypothyroidism, alcoholic cirrhosis, and HTN who presented after being found at home stuck on the couch for several days, found to be in liver failure. 1) Acute liver failure in the setting of alcoholic cirrhosis: Pt continues to drink. MELD score currently 19. Platelets trending down. Elevated liver enzymes. Bilirubin 11.4. Normal ammonia. - Trend labs - Continue Octreotide - Continue Pantoprazole - Continue home Spironolactone. Increase to 100mg daily. 2) GI bleeding: Presumed esophageal varices, although not confirmed that blood seen was GI in origin - Continue to monitor output - Discussed with pt and her daughters in detail consequences of varices if present. The pt expressed with clarity that she is not interested in interventions such as endoscopy/banding to prevent bleeding or evaluate further. She is okay with treating conditions with medications but does not desire any procedures at this time. 3) UTI: Based on u/a - Continue IV Ceftriaxone - F/U urine culture 4) Elevated creatinine: Possibly hepatorenal syndrome - Continue to trend - Gentle IVF at 75cc/hr 5) Acute anemia: Macrocytic with elevated RDW. Likely multifactorial from bleeding as well as vitamin deficiency related to alcoholism - Trend in the AM - Pt undecided about blood transfusion if indicated - Vitamin B12, Folate levels 3) HTN: BP in severe range at admission, asymptomatic - Continue home medications including Metoprolol, Hydralazine, Spirinolactone 4) Hypothyroidism: - Continue Levothyroxine - TSH in the morning 5) CHF: No evidence exacerbation. Last Echo 2020 with normal EF. - Continue home medications 6) Alcoholism: Currently drinking at least 3 beers/day - [facility]WA protocol - Multivitamin daily DVT ppx: SCDs - platelet count 136, high risk esophageal bleeding Code: Discussed with pt and her daughters (DPOA), DNR FEN: General diet Dispo: Pt will require multiple hospital days to stabilize. Adamently requests discharge home when stable. Discussed with her concerns regarding care at home due to state she was found in prior to admission. Will continue to discuss. Dependent on goals of care at discharge, may be appropriate for hospice care. Time-Based Coding :: 70 spent with patient and on the chart (including review of chart, obtaining history, exam, reviewing outside data, placing orders, documenting exam and treatment plan, and counseling patient) on 07/22/25. Quality VTE Deep Vein Thrombosis/Pulmonary Embolism Present on Admission: No [facility] Utility Manager Document charge(s): Yes Charge Codes Initial inpatient/observation care: [id number]
--- NOTE | 2025-07-22 19:41 | PC.NURSE ---
Admit Note Pt arrived to room 224 at 1305 from ED, transferred via slider board to bed. Alert and oriented to self and place, sleepy. Jaundiced, denies pain. Oriented to room and to call light/bed/tv controls. Bed alarm on. Daughter at bedside.
[2025-07-22] MEDS: SODIUM CHLORIDE 0.9% 1,000 ML 75 ML IV (20:00)
[2025-07-22] MEDS: PANTOPRAZOLE 40 MG VIAL 20 MG IV (20:48)
[2025-07-23] VITALS (8 sets, daily range): BP systolic 115–144; BP diastolic 51–77; PULSE 77–96; RESP 15–18; TEMP 35.7–36.5; O2SAT 93–97
[2025-07-23 05:31] LABS: Ammonia (NH3) 33 umol/L (9-30)
[2025-07-23 05:33] LABS: Alanine Aminotransferase 44 IU/L (<35); Albumin 2.6 g/dL (3.5-5.0); Albumin Globulin Ratio 0.7 (1.0-2.8); Alkaline Phosphatase 300 U/L (38-126); Blood Urea Nitrogen 48 mg/dL (7-17); Calcium 8.3 mg/dL (8.4-10.2); Carbon Dioxide 19 mmol/L (22-32); Chloride 103 mmol/L (98-107); Estimated Glomerular Filt Rate 38 mL/min (>60); Globulin 4.0 g/dL (1.7-4.1); Glucose 136 mg/dL (70-99); HEMOLYSIS < 15 (0-50); Potassium 4.1 mmol/L (3.4-5.1); Sodium 132 mmol/L (137-145); Total Protein 6.6 g/dL (6.3-8.2)
[2025-07-23] MEDS: LEVOTHYROXINE 100 MCG TABLET PO (05:33)
[2025-07-23 06:03] LABS: Hematocrit 25.2 % (36-46); Hemoglobin 8.8 g/dL (12.0-16.0); Mean Corpuscular HGB Conc 34.8 % (30-36); Mean Corpuscular Hemoglobin 41.8 PG (26-34); Mean Corpuscular Volume 119.9 fL (80-100); Platelet Count 118 X10^3/uL (150-400)
[2025-07-23 06:04] LABS: Thyroid Stimulating Hormone 3.83 uIU/mL (0.47-4.68)
[2025-07-23 06:39] LABS: Add Manual Diff / Slide Review YES
[2025-07-23 06:47] LABS: Anisocytosis 1+; Band Neutrophils Percent 6.0 % (3-7); Basophils Percent Manual 1.0 % (0-1); Lymphocytes Percent Manual 24.0 % (25-45); Macrocytosis 2+; Monocytes Percent Manual 6.0 % (2-11); Neutrophils Absolute Manual 6969 /uL (3000-5900); Segmented Neutrophils Percent 63.0 % (38-70); Total Cells Counted 100
[2025-07-23 07:41] LABS: Folate 4.5 ng/mL (2.76-20.0); Vitamin B12 > 1000 pg/mL (239-931)
[2025-07-23] MEDS: ACETAMINOPHEN 325 MG TABLET 650 MG PO (08:01)
--- NOTE | 2025-07-23 08:30 | P.PN_ITS ---
Subjective Subjective Date Patient Seen: 07/23/25 Time Patient Seen: 08:00 Interval history: This morning the pt reports generally not feeling great. She cannot really identify any specific areas of concern or pain. As per nursing, overnight the pt was having some generalized joint pains. She denies any distinct SOB, chest pain, abdominal pain this morning. She has not had a BM in a couple days she believes. Exam Vital Signs (past 8 hours): - 07/23/25 04:00 Temperature 97.3 F L Pulse Rate 92 H Respiratory Rate 18 Blood Pressure 143/75 H Pulse Oximetry 93 Oxygen Flow Rate 0 Oxygen Delivery Method Room Air Oxygen Flow Rate 0 Narrative Exam Narrative: Gen: NAD, sitting comfortably in bed HEENT: significant scleral icterus CV: RRR, no murmurs Resp: clear to auscultation bilaterally Abd: soft, nontender, distended, fluid wave present, slightly hypoactive bowel sounds Ext: no edema Skin: jaundiced Objective Labs 07/23/25 04:45 07/23/25 04:45 Labs: Laboratory Results - last 24 hr 07/22/25 07/22/25 07/22/25 08:55 09:42 09:52 WBC 10.3 RBC 2.54 L Hgb 10.6 L Hct 30.3 L MCV 119.4 H MCH 41.6 H MCHC 34.8 RDW 16.0 H Plt Count 136 L Neut % (Auto) 61.3 Lymph % (Auto) 31.9 [place] % (Auto) 5.5 Eos % (Auto) 0.6 L Baso % (Auto) 0.7 Neut # (Auto) 6300 Lymph # (Auto) 3300 [place] # (Auto) 600 Eos # (Auto) 100 Baso # (Auto) 100 Total Counted Seg Neutrophils % Band Neutrophils % Lymphocytes % (Manual) Monocytes % (Manual) Basophils % (Manual) Neutrophils # (Manual) Nucleated RBCs RBC Morphology Not Reportable Anisocytosis 1+ H Macrocytosis PT 13.5 H INR 1.2 APTT 31 Sodium 138 Potassium 4.5 Chloride 107 Carbon Dioxide 23 BUN 43 H Creatinine 1.20 H Estimated GFR 48 L BUN/Creatinine Ratio 35.8 H Glucose 98 Calcium 9.1 Total Bilirubin 11.4 H AST 155 H ALT 60 H Alkaline Phosphatase 362 H Ammonia 29 Total Protein 7.1 Albumin 2.9 L Globulin 4.2 H Albumin/Globulin Ratio 0.7 L Lipase 119 Vitamin B12 Folate TSH Urine Color Urine Appearance Urine pH Ur Specific [place] Urine Protein Urine Glucose (UA) Urine Ketones Urine Occult Blood Urine Nitrate Urine Bilirubin Ur Bilirubin Confirm Urine Urobilinogen Ur Leukocyte Esterase Urine RBC Urine WBC Ur Squamous Epith Cells Urine Bacteria Ur Culture Indicated? Vol Urine Centrifuged Blood Type A Positive Antibody Screen Negative 07/22/25 07/23/25 11:46 04:45 WBC 10.1 RBC 2.10 L Hgb 8.8 L Hct 25.2 L MCV 119.9 H MCH 41.8 H MCHC 34.8 RDW 16.3 H Plt Count 118 L Neut % (Auto) Not Reportable Lymph % (Auto) Not Reportable [place] % (Auto) Not Reportable Eos % (Auto) Not Reportable Baso % (Auto) Not Reportable Neut # (Auto) Lymph # (Auto) Not Reportable [place] # (Auto) Not Reportable Eos # (Auto) Baso # (Auto) Not Reportable Total Counted 100 Seg Neutrophils % 63.0 Band Neutrophils % 6.0 Lymphocytes % (Manual) 24.0 L Monocytes % (Manual) 6.0 Basophils % (Manual) 1.0 Neutrophils # (Manual) 6969 H Nucleated RBCs 2 H RBC Morphology See below Anisocytosis 1+ H Macrocytosis 2+ H PT INR APTT Sodium 132 L Potassium 4.1 Chloride 103 Carbon Dioxide 19 L BUN 48 H Creatinine 1.45 H Estimated GFR 38 L BUN/Creatinine Ratio 33.1 H Glucose 136 H Calcium 8.3 L Total Bilirubin 8.9 H AST 107 H ALT 44 H Alkaline Phosphatase 300 H Ammonia 33 H Total Protein 6.6 Albumin 2.6 L Globulin 4.0 Albumin/Globulin Ratio 0.7 L Lipase Vitamin B12 > 1000 H Folate 4.5 TSH 3.83 Urine Color [place] Urine Appearance Clear Urine pH 7.0 Ur Specific [place] 1.010 Urine Protein 1+ H Urine Glucose (UA) Negative Urine Ketones Negative Urine Occult Blood 3+ H Urine Nitrate Positive H Urine Bilirubin 2+ H Ur Bilirubin Confirm Positive H Urine Urobilinogen 2.0 H Ur Leukocyte Esterase 3+ H Urine RBC 10-30/hpf H Urine WBC 30-100/hpf H Ur Squamous Epith Cells None seen Urine Bacteria Many (>30) H Ur Culture Indicated? Specimen cultured Vol Urine Centrifuged 10ml (spun) Blood Type Antibody Screen [facility] Medical History (Updated 07/22/25 @ 12:30 by Mary Franklin DO) ASD (atrial septal defect) (08/2016) Alcoholic liver disease (2016) End-stage liver disease (2016) CHF (congestive heart failure) Compression fracture of L1 lumbar vertebra Surgical History History of esophagogastroduodenoscopy (EGD) (05/23/17) History of colonoscopy (05/23/17) Social History marital status: household members: spouse, significant other and friend(s) lives independently: Yes caregiver/support person: No housing: house occupational status: previously employed Smoking Status: Never smoker second hand exposure: No alcohol intake: current substance use type: does not use Assessment & Plan Assessment & Plan narrative: Pt is a 75yo woman with CHF, hypothyroidism, alcoholic cirrhosis, and HTN who presented after being found at home stuck on the couch for several days, found to be in liver failure. 1) Liver failure in the setting of alcoholic cirrhosis: Pt continues to drink. MELD score 19 at admission. Platelets continue trending down, could in part be dilutional. Elevated liver enzymes. Bilirubin trending down, ammonia [place] slightly. - Trend labs - Continue Spironolactone at 100mg daily 2) GI bleeding: Presumed esophageal varices, although not confirmed that blood seen was GI in origin. H/H fell slightly, not to transfusion level. - Continue to monitor output - Lactulose today due to mild constipation - Continue Pantoprazole - Discussed with pt and her daughters in detail consequences of varices if present. The pt expressed with clarity that she is not interested in interventions such as endoscopy/banding to prevent bleeding or evaluate further. She is okay with treating conditions with medications but does not desire any procedures at this time. - Pt will need to consider further if transfusion indicated. Her is a Religion, children are not. Will continue to discuss if becoming relevant. 3) UTI: Urine growing gram negative bacilli - likely E coli - Continue IV Ceftriaxone - F/U urine culture 4) Elevated creatinine: Possibly hepatorenal syndrome - Continue to trend - Gentle IVF at 75cc/hr 5) Acute anemia: Macrocytic with elevated RDW. Likely multifactorial from bleeding as well as vitamin deficiency related to alcoholism. Vitamin B12 and folate levels normal. - Continue to trend - Pt undecided about blood transfusion if indicated as above 3) HTN: BP in severe range at admission, asymptomatic. Normalizing. - Continue home medications including Metoprolol, Hydralazine, Spirinolactone 4) Hypothyroidism: Appropriately supplemented - Continue Levothyroxine 5) CHF: No evidence exacerbation. Last Echo 2020 with normal EF. - Continue home medications 6) Alcoholism: Currently drinking at least 3 beers/day - [facility] protocol - Multivitamin daily DVT ppx: SCDs - platelet count 118, high risk esophageal bleeding Code: Discussed with pt and her daughters (DPOA), DNR FEN: General diet Dispo: Pt will require multiple hospital days to stabilize. Adamently requests discharge home when stable. Discussed with her concerns regarding care at home due to state she was found in prior to admission. Will continue to discuss. PT/OT consulted. Dependent on goals of care at discharge, may be appropriate for hospice care. Time-Based Coding :: [TOTAL MINUTES] spent with patient and on the chart (including review of chart, obtaining history, exam, reviewing outside data, placing orders, documenting exam and treatment plan, and counseling patient) on [DATE]. Quality VTE Deep Vein Thrombosis/Pulmonary Embolism Present on Admission: No [facility] PROFEE Urogynecology Physician Document charge(s): Yes Charge Codes Subsequent inpatient/observation care: [id number]
[2025-07-23] MEDS: LACTULOSE 20 GM/30 ML SOLUTION PO (10:08)
[2025-07-23] MEDS: METOPROLOL ER 50 MG TABLET 100 MG PO (10:09)
[2025-07-23] MEDS: SPIRONOLACTONE 25 MG TABLET 100 MG PO (10:09)
[2025-07-23] MEDS: PANTOPRAZOLE 40 MG VIAL 20 MG IV ×2 (10:09→20:25)
[2025-07-23] MEDS: MULTIVITAMIN 1 TABLET 1 TAB PO (10:09)
--- NOTE | 2025-07-23 11:13 | OT.IP.EVAL ---
Past Medical History (Last Reviewed 07/22/25 @ 10:19 by Mary Franklin DO) Alcoholic liver disease (2016) ASD (atrial septal defect) (08/2016) CHF (congestive heart failure) Compression fracture of L1 lumbar vertebra End-stage liver disease (2016) Surgical History (Last Reviewed 07/22/25 @ 10:19 by Mary Franklin DO) History of colonoscopy (05/23/17) History of esophagogastroduodenoscopy (EGD) (05/23/17) Occupational Therapy Inpatient Evaluation/Re-Eval M1 PT/OT-IP Prior Functional Status Start: 07/23/25 16:20 Freq: NEEDED Status: Active Protocol: Document 07/23/25 17:03 [facility] (Rec: 07/23/25 17:21 [facility] Desktop) Medical Review Prior Functional Status Medical History Yes Reviewed Communication able to make needs known; slow to respond to questions and instructions Mobility and Gait daughter provided PLOF and home set up: stated that pt was modified independent with all mobilities without AD but tends to furniture cruise for support for ambulation Activities of Daily Pt states able to care for herself but that her Living and IADL's daughter assist with cleaning. Social History Household Members spouse,significant other,friend(s) Living Arrangements House Number of Floors ( One Floor Floors) Number of Stairs To ramp to enter Enter/Railing? Home Environment High Toilet,Walk in Shower,Built-In Shower Seat,Ramp Home Equipment Hand Held Shower,Grab Bars In Shower Additional Social pt with toilet safety frame History Comment pt's daughter checks on her once a week M2 OT-IP Current Condition Start: 07/23/25 17:03 Freq: Status: Active Protocol: Document 07/23/25 17:03 [facility] (Rec: 07/23/25 17:21 [facility] Desktop) Occupational Therapy Current Condition Current Condition Evaluation Date 07/23/25 Treatment Diagnosis Acute liver failure in setting of alcoholic cirrhois,, UTI Diagnosis Onset Date 07/22/25 M3 OT- IP Subjective and Pain Start: 07/23/25 17:03 Freq: Status: Active Protocol: Document 07/23/25 17:03 [facility] (Rec: 07/23/25 17:21 [facility] Desktop) OT- Subjective Occupational Therapy Visit Type Type Initial Evaluation Visit Start Time 10:20 Visit Stop Time 11:13 Occupational Therapy Visit Comments Patient Comments Pt agreed to get up to the recliner. Patient/Caregiver TO go home. Goals OT Pain Assessment Pain When Pain Assessed At Rest Pain Present Pain Present Denied Pain M4 OT- IP ADL's Start: 07/23/25 17:03 Freq: Status: Active Protocol: Document 07/23/25 17:03 [facility] (Rec: 07/23/25 17:21 [facility] Desktop) OT [id number] Comments OT Self-Feeding Not at meal time. Comments OT ADL-Grooming Comments OT Grooming Comments Not performed. OT ADL-Oral Care Comments Oral Care Comments Not performed. OT ADL-Dressing General Eval Lower Body Dressing Minimal Assistance Ability Comments OT Dressing Comments MISSY with socks. OT ADL-Toileting Comments OT Toileting Not having to go. Comments OT ADL-Bathing Comments OT Bathing Comments Pt will need assist and pt states usually sponges off at home. M5 OT- IP IADL's Start: 07/23/25 17:03 Freq: Status: Active Protocol: Document 07/23/25 17:03 [facility] (Rec: 07/23/25 17:21 [facility] Desktop) OT-Instrumental Activities of Daily Living Home Safety Awareness Awareness of Need Decreased Awareness for Assistance at Home Ability to Problem Able to Problem Solve Solve Emergency Situations Medication Management Medication Pt would benefit from asisst. Management Comments Money Management Money Management Pt would benefit from assist. Comments Meal Preparation Meal Preparation Pt would benefit from assist. Comments Plastic Products Sales Representative Plastic Products Sales Representative Pt will need assist. Comments Driving Driving Concerns Identified Regarding Safety M6 OT- IP Functional Cognition Start: 07/23/25 17:03 Freq: Status: Active Protocol: Document 07/23/25 17:03 [facility] (Rec: 07/23/25 17:21 [facility] Desktop) Cognitive Factors Limiting Selfcare Function Cognitive Ability Level of Alertness Alert,Confusional State Attention Span Capable of Focused Attention,Unable to Sustain Ability Attention Ability to Follow Able to Follow One Step Commands with Increased Time, Commands Able to Follow One Step Commands with Repetition Memory Description Short Term Impaired,Working Impaired Safety Awareness Underestimates Need for Assistance Problem Solving Unable to Identify Errors,Needs Assist to Identify Ability Solutions Cognitive Tests SLUMS Pt scored 11/30 which implies dementia, pt not able to subtract 100-23, able to name 5 animals in one minute, able to recall 3/5 words after time passed, not able to states 3 or 4 digit number backwards, not able to write the number on the clock or hour hand correctly after time given, pt able to answer 2/4 questions right after paragraph read. Good to reassess pt at a later date for SLUMS or ACL. Cognitive Comments Cognitive Assessment Pt having difficulty to follow commands and needing Comments simple concrete cues to follow. OT- Vision and Hearing OT- Vision Assessment Visual Acuity Glasses All The Time Visual Attentiveness WFL Occular Pursuits WFL M7 OT- IP Mobility and Balance Start: 07/23/25 17:03 Freq: Status: Active Protocol: Document 07/23/25 17:03 [facility] (Rec: 07/23/25 17:21 [facility] Desktop) OT- Bed Mobility Assessment Supine to Sit Supine to Sit Assist Maximum Assistance OT-Transfer Assessment Sit to and From Stand Sit to and from Moderate Assistance Stand Technique Transfer Destination Bed,Chair Transfer Technique Stand Step Pivot Devices Transfer Assistive Gait Belt,Front Wheeled Walker Devices Comments Mobility Comments MAXAX1 to help get her trunk upright and MODA x1 to stand to the FWW and MOD/MAXA with FWW to transfer- assist with balance and FWW. OT- Balance Assessment Sitting Balance and Reactions Static Sitting Good Balance Ability Dynamic Sitting Fair Balance Ability Standing Balance and Reactions Static Standing Poor Balance Ability Dynamic Standing Poor Balance Ability M8 OT- IP Objective Assessments Start: 07/23/25 17:03 Freq: Status: Active Protocol: Document 07/23/25 17:03 [facility] (Rec: 07/23/25 17:21 [facility] Desktop) OT Gross Range of Motion Upper Extremity Range of Motion ROM Impairments Grossly WFL. OT Strength Comments Strength Comments grossly WFL M9 OT- IP Assessment and Plan Start: 07/23/25 17:03 Freq: Status: Active Protocol: Document 07/23/25 17:03 [facility] (Rec: 07/23/25 17:21 [facility] Desktop) OT Summary Assessment and Plan Potential Rehabilitation Fair Potential Analytic Complexity Moderate at Evaluation Summary OT Impairments Balance,Functional Cognition,Functional Mobility,Self- Feeding,Grooming,Dressing,Toileting,Bathing,Toilet Transfers,Shower Transfers,Activity Tolerance Progress Towards Slow Progress due to Medical Issues,Slow Progress due Goals to Activity Tolerance,Slow Progress due to Cognition Assessment Summary Pt MOD complexity and main barriers decreased strength, balance, safety awareness, STM, and needing extensive assist for all ADL and mobility needs. Pt will benefit from skilled rehab to maximize level of independence but afterwards pt may benefit from memory care/CUSTODIAL or 17/04 assist. Goals Self-Feeding Goal Standby Assistance Grooming Goal Standby Assistance Dressing Goal Minimal Assistance Toileting Goal Minimal Assistance Bathing Goal Minimal Assistance Toilet Transfer Goal Contact Guard Assistance Shower Transfer Goal Minimal Assistance Days to Meet Goals 20 Frequency of Treatment Other frequency 5x/week Treatment Plan OT Treatment Plan ADL Training,Functional Cognition Training,Functional Mobility,Patient/Family Education,Discharge Planning Discharge Recommendations OT Discharge SNF Rehab Recommendations Transportation Needs Wheelchair/Cabulance at Discharge
--- NOTE | 2025-07-23 14:15 | PT.IIE ---
Surgical History (Last Reviewed 07/22/25 @ 10:19 by Mary Franklin DO) History of colonoscopy (05/23/17) History of esophagogastroduodenoscopy (EGD) (05/23/17) Medical History (Last Reviewed 07/22/25 @ 10:19 by Mary Franklin DO) Alcoholic liver disease (2015) ASD (atrial septal defect) (08/2016) CHF (congestive heart failure) Compression fracture of L1 lumbar vertebra End-stage liver disease (2015) Physical Therapy Inpatient Evaluation/Re-Eval M1 PT/OT-IP Prior Functional Status Start: 07/23/25 16:20 Freq: NEEDED Status: Active Protocol: Document 07/23/25 14:15 [facility] (Rec: 07/23/25 16:34 [facility] [id number]) Medical Review Prior Functional Status Medical History Yes Reviewed Communication able to make needs known; slow to respond to questions and instructions Mobility and Gait daughter provided PLOF and home set up: stated that pt was modified independent with all mobilities without AD but tends to furniture cruise for support for ambulation Social History Household Members spouse Living Arrangements House Number of Floors ( One Floor Floors) Number of Stairs To ramp to enter Enter/Railing? Home Environment High Toilet,Walk in Shower,Built-In Shower Seat,Ramp Home Equipment Hand Held Shower,Grab Bars In Shower Additional Social pt with toilet safety frame History Comment pt's daughter checks on her once a week M2 PT-IP Current Condition Start: 07/23/25 16:20 Freq: NEEDED Status: Active Protocol: Document 07/23/25 14:15 [facility] (Rec: 07/23/25 16:34 AB [id number]) Physical Therapy Current Condition Current Condition Evaluation Date 07/23/25 Treatment Diagnosis GI bleed; alcoholic liver failure; difficulty in walking Onset Date 07/22/25 M3 PT-IP Subjective Start: 07/23/25 16:20 Freq: NEEDED Status: Active Protocol: Document 07/23/25 14:15 [facility] (Rec: 07/23/25 16:34 AB [id number]) Subjective Physical Therapy Visit Type Type Initial Evaluation Visit Start Time 14:15 Visit Stop Time 15:05 Number of COMPUTER PATTERNMAKER Visits 0 M4 PT-IP Mobility and Gait Start: 07/23/25 16:20 Freq: NEEDED Status: Active Protocol: Document 07/23/25 14:15 [facility] (Rec: 07/23/25 16:34 AB [id number]) PT-Bed Mobility Assessment Supine to Sit Supine to Sit Maximum Assistance,1 Person Assistance,2 Person Assistance,Head of Bed Elevated,Bedrails Scooting Scooting to Edge of Maximum Assistance Bed PT-Transfer Assessment Sit to and From Stand Sit to and from Maximum Assistance,1 Person Assistance,Use of Upper Stand Extremities Equipment Transfer Assistive Gait Belt,Front Wheeled Walker Device Orthotic/Prosthetic No Devices or Brace: Transfers Transfer Destination Bed,Bedside Commode Transfer Technique Stand Step Pivot Transfer Ability Level of Assist Maximum Assistance,1 Person Assistance,Use of Upper Extremities Comments Mobility Comments pt in bed and family in room. obtained PLOF and home set up. pt in bed and needs to be cleaned up. informed nurse. pt continues to still do a BM even after being cleaned up in bed and agreed to get up and use the bedside commode. supine to sit max A x 1-2 and max cues. able to sit on EOB mod to max with initial sitting. positioned pt on EOB. max A for scooting to EOB. min A for sitting afterwards. sit to stand from the EOB max A and cues and step transfer to bedside commode max A and max cues. needed max cues with all tasks and assist with moving FWW. sit to stand from the bedside commode max A and max cues and pt was able to maintain standing using FWW for support mod A while NAC assists pt with hygiene care and brief management. pt able to take steps towards HOB ~ 2 ft using FWW mod to max A and max cues. pt refused to sit on the chair. sit to supine max A x 1-2 and max cues. positioned pt in bed. call light and table placed within reach. Gait Assessment Gait Gait Assistance Moderate Assistance,Maximum Assistance,1 Person Assist Required: Distance (Feet) 2 Able to Maintain Yes Weight Bearing Status During Gait Assistive Devices Assistive Device Gait Belt,Front Wheeled Walker Orthotic/Prosthetic No Devices or Brace: Gait Deviations General Gait Pattern Decreased Feet Clearance,Step-to Gait Factors Limiting Gait Function Factors Limiting Decreased Activity Tolerance,Decreased Strength, Gait Function Difficulty Following Directions,Poor Balance,Poor Safety Awareness PT-Balance Assessment Sitting Balance and Reactions Static Sitting Fair Balance Ability Dynamic Sitting Poor Balance Ability Standing Balance and Reactions Static Standing Poor Balance Ability Dynamic Standing Poor Balance Ability Device Used FWW M5 PT-IP Objective Assessments Start: 07/23/25 16:20 Freq: NEEDED Status: Active Protocol: Document 07/23/25 14:15 [facility] (Rec: 07/23/25 16:34 AB [id number]) Orientation Orientation/Cognition Level of Alertness Alert Orientation Name Language Function Hard of Hearing Ability Safety Awareness Decreased Safety Awareness Memory Description Short Term Impaired,Check Clerk Impaired Strength Lower Extremity Strength Assessment Bilaterally Impaired Hip 3-/5 Knee 3+/5 Muscle Tone Muscle Tone WNL Yes M6 PT-IP Treatment Start: 07/23/25 16:20 Freq: NEEDED Status: Active Protocol: Document 07/23/25 14:15 [facility] (Rec: 07/23/25 16:34 AB [id number]) Physical Therapy Treatment Education Education Provided Safety M7 PT-IP Assessment and Plan Start: 07/23/25 16:20 Freq: NEEDED Status: Active Protocol: Document 07/23/25 14:15 [facility] (Rec: 07/23/25 16:34 AB [id number]) PT Summary Assessment and Plan Potential Rehabilitation Fair Potential Status of Condition Unstable at Evaluation Summary Impairments Pain,ROM,Strength,Balance,Coordination,Sensation,Tone, Cognition,Bed Mobility,Transfers,Gait,Activity Tolerance Assessment Summary pt is a 75 y/o F who is admitted for GI bleed, alcoholic liver failure and anemia. pt requiring max A x 1-2 for bed mobility, max A for transfers and was able to take a few steps using FWW mod to max A and max cues. pt needing max cues with all tasks. pt will require 24/7 assist and will benefit from SNF rehab. will continue to assess progress. Goals Bed Mobility Goal Minimal Assistance Transfer Goal Minimal Assistance,Front Wheeled Walker Gait Goal Minimal Assistance,Front Wheel Walker Gait Distance 50 Other Goals improve bed mobility, transfers, ambulation using FWW ~ 100 ft SBA Days to Meet Goals 10 Frequency of Treatment Frequency Of Once a Day Treatment Treatment Plan Physical Therapy Bed Mobility Training,Transfer Training,Gait Training, Treatment Plan Therapeutic Exercise,Balance Retraining,Discharge Planning,Hot or Cold Pack,Neuromuscular Re-ed, Coordination Retraining,Manual Therapy Precautions Other Precautions falls Recommendations To Nursing Amount of Assist 1 Person Assist Needed Discharge Recommendations PT Discharge SNF Rehab Recommendations Transportation Needs Wheelchair/Cabulance at Discharge - PT assist 1
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
[2025-07-24] MEDS: SODIUM CHLORIDE 0.9% 1,000 ML 75 ML IV (04:38)
[2025-07-24 04:59] LABS: Ammonia (NH3) 26 umol/L (9-30)
[2025-07-24 05:01] LABS: INR 1.3 (0.9-1.3); Prothrombin Time 14.8 SECONDS (9.4-12.5)
[2025-07-24 05:04] LABS: PTT Partial Thromboplastin Tim 34 SECONDS (25.1-36.5)
[2025-07-24 05:06] LABS: Alanine Aminotransferase 41 IU/L (<35); Albumin 2.5 g/dL (3.5-5.0); Albumin Globulin Ratio 0.7 (1.0-2.8); Alkaline Phosphatase 260 U/L (38-126); Blood Urea Nitrogen 44 mg/dL (7-17); Calcium 8.1 mg/dL (8.4-10.2); Carbon Dioxide 18 mmol/L (22-32); Chloride 101 mmol/L (98-107); Estimated Glomerular Filt Rate 36 mL/min (>60); Globulin 3.8 g/dL (1.7-4.1); Glucose 99 mg/dL (70-99); HEMOLYSIS < 15 (0-50); Hematocrit 25.0 % (36-46); Hemoglobin 8.7 g/dL (12.0-16.0); Mean Corpuscular HGB Conc 34.8 % (30-36); Mean Corpuscular Hemoglobin 41.4 PG (26-34); Mean Corpuscular Volume 119.0 fL (80-100); Platelet Count 110 X10^3/uL (150-400); Potassium 3.9 mmol/L (3.4-5.1); Sodium 129 mmol/L (137-145); Total Protein 6.3 g/dL (6.3-8.2)
[2025-07-24 05:16] LABS: Add Manual Diff / Slide Review YES
[2025-07-24 06:00] LABS: Anisocytosis 1+; Band Neutrophils Percent 2.0 % (3-7); Eosinophils Percent Manual 4.0 % (2-4); Lymphocytes Percent Manual 20.0 % (25-45); Macrocytosis 2+; Monocytes Percent Manual 7.0 % (2-11); Neutrophils Absolute Manual 8073 /uL (3000-5900); Segmented Neutrophils Percent 67.0 % (38-70); Target Cells 1+; Total Cells Counted 100
[2025-07-24] MEDS: LEVOTHYROXINE 100 MCG TABLET PO (06:36)
[2025-07-24 08:07] VITALS: BP 97/54; PULSE 75; RESP 16; TEMP 35.9; O2SAT 93
[2025-07-24 10:19] VITALS: BP 107/57; PULSE 67
--- NOTE | 2025-07-24 10:49 | OT.IPNOTE ---
Per hospitalist, pt refusing therapy today and deciding on whether to do comfort measures, check on pt tomorrow.
[2025-07-24] MEDS: MULTIVITAMIN 1 TABLET 1 TAB PO (10:58)
[2025-07-24] MEDS: PANTOPRAZOLE 40 MG VIAL 20 MG IV (10:58)
[2025-07-24] MEDS: SPIRONOLACTONE 25 MG TABLET 100 MG PO (11:03)
--- NOTE | 2025-07-24 11:40 | PM.PN.IH.1 ---
Subjective Subjective Interval history: The pt reports just being tired this morning. She denies any specific pain, SOB, chest pain. She doesn't really have the energy to do anything. Exam Vital Signs (past 8 hours): - 07/24/25 08:07 07/24/25 10:19 Temperature 96.6 F L Pulse Rate 75 67 Respiratory Rate 16 Blood Pressure 97/54 L 107/57 L Pulse Oximetry 93 Oxygen Flow Rate 0 Oxygen Delivery Method Room Air Oxygen Flow Rate 0 Narrative Exam Narrative: Gen: NAD, laying comfortably in bed HEENT: significant scleral icterus CV: RRR, no murmurs Resp: clear to auscultation bilaterally Abd: soft, nontender, distended, fluid wave present, normoactive bowel sounds Ext: no edema Skin: jaundiced Objective Labs 07/24/25 04:40 07/24/25 04:40 Labs: Laboratory Results - last 24 hr 07/24/25 04:40 WBC 11.7 H RBC 2.10 L Hgb 8.7 L Hct 25.0 L MCV 119.0 H MCH 41.4 H MCHC 34.8 RDW 16.5 H Plt Count 110 L Neut % (Auto) Not Reportable Lymph % (Auto) Not Reportable Overton % (Auto) Not Reportable Eos % (Auto) Not Reportable Baso % (Auto) Not Reportable Lymph # (Auto) Not Reportable [place] # (Auto) Not Reportable Baso # (Auto) Not Reportable Total Counted 100 Seg Neutrophils % 67.0 Band Neutrophils % 2.0 L Lymphocytes % (Manual) 20.0 L Monocytes % (Manual) 7.0 Eosinophils % (Manual) 4.0 Neutrophils # (Manual) 8073 H Nucleated RBCs 2 H RBC Morphology See below Anisocytosis 1+ H Macrocytosis 2+ H Target Cells 1+ H PT 14.8 H INR 1.3 APTT 34 Sodium 129 L Potassium 3.9 Chloride 101 Carbon Dioxide 18 L BUN 44 H Creatinine 1.50 H Estimated GFR 36 L BUN/Creatinine Ratio 29.3 H Glucose 99 Calcium 8.1 L Total Bilirubin 8.1 H AST 97 H ALT 41 H Alkaline Phosphatase 260 H Ammonia 26 Total Protein 6.3 Albumin 2.5 L Globulin 3.8 Albumin/Globulin Ratio 0.7 L PFSH Medical History (Updated 07/22/25 @ 12:30 by Mary Franklin DO) ASD (atrial septal defect) (08/2016) Alcoholic liver disease (2016) End-stage liver disease (2016) CHF (congestive heart failure) Compression fracture of L1 lumbar vertebra Surgical History History of esophagogastroduodenoscopy (EGD) (05/23/17) History of colonoscopy (05/23/17) Social History marital status: household members: spouse, significant other and friend(s) lives independently: Yes caregiver/support person: No housing: house occupational status: previously employed Smoking Status: Never smoker second hand exposure: No alcohol intake: current substance use type: does not use Assessment & Plan Assessment & Plan narrative: Pt is a 75yo woman with CHF, hypothyroidism, alcoholic cirrhosis, and HTN who presented after being found at home stuck on the couch for several days, found to be in liver failure. Pt increasingly fatigued and confused. Work of breathing is increasing. After discussion with patient and her daughters (DPOA), the decision was made to transition to comfort care. The pt and her daughters would like to discontinue all medications, to not prolong the process of dying. Orders were placed to this effect. Comfort care orders initiated, and will have Morphine available PRN. Pt will remain in the hospital for now, with plans for discharge to daughter's house on hospice care if not passing more imminently. Time-Based Coding :: 90 spent with patient and on the chart (including review of chart, obtaining history, exam, reviewing outside data, placing orders, documenting exam and treatment plan, and counseling patient) on 07/24/25. Quality VTE Deep Vein Thrombosis/Pulmonary Embolism Present on Admission: No IH PROFEE Sales And Business Development Manager Document charge(s): Yes Charge Codes Subsequent inpatient/observation care: [id number] Inpatient/observation prolonged services: [id number]
--- NOTE | 2025-07-24 11:47 | DIET.CONS ---
Dietary Consultation Note Admission Date: 07/22/2025 12:29 Assessment: RD consulted for alcoholism/liver failure. Per rounds, pt possibly going on comfort care plan. Pending decision. Will hold off on consult and f/u if not going comfort care. Ht: 157.48 cm Wt: 69.4 kg BMI: 28.0 UBW: Last BM: 07/23/25 (07/23/25 15:11) MNA: 12 Wesly Score: 17 Diet: 07/22/25 Dinner General (Regular) Diet Diet Modifications: Nutrition Percent Meal Consumed 50% 07/23/25 18:00 Percent Meal Consumed 25% 07/23/25 10:00 Percent Meal Consumed 50% 07/22/25 18:00 Labs: RBC 2.10 X10^6/uL (4.0-5.2) L 07/24/25 04:40 Hgb 8.7 g/dL (12.0-16.0) L 07/24/25 04:40 Hct 25.0 % (36-46) L 07/24/25 04:40 Creatinine 1.50 mg/dL (0.52-1.04) H 07/24/25 04:40 Electronically Signed by: Kaela Henley 07/24/25 11:47 Clinical Dietitian [address] [address]
[2025-07-24 12:06] VITALS: BP 114/54; PULSE 61; RESP 18; TEMP 36; O2SAT 91
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
--- NOTE | 2025-07-24 14:19 | PT-IP ANOTE ---
Hold PT today. Pt is considering comfort care.
[2025-07-24] MEDS: MORPHINE 10 MG/0.5 ML ORAL SYRINGE SL (21:50)
[2025-07-25 00:16] VITALS: O2SAT 93
[2025-07-25] MEDS: SCOPOLAMINE 1 PATCH TOP (10:14)
--- NOTE | 2025-07-25 10:32 | PM.PN.IH.1 ---
Subjective Subjective Interval history: The pt is resting comfortably. As per her daughter who is at bedside, pt was able to sleep through much of the night. They had some good quality together time last evening. She did require a dose of Morphine earlier this morning. Exam Vital Signs (past 8 hours): - 07/25/25 07:00 Oxygen Delivery Method Nasal Cannula Humidification Fraction of Inspired Oxygen 28 SaO2/FiO2 Ratio 332 Oxygen Delivery Method Nasal Cannula,Humidification Oxygen Flow Rate 2 Narrative Exam Narrative: Gen: NAD, sleeping comfortably, breathing becoming slightly agonal [facility] 07/24/25 04:40 07/24/25 04:40 [facility] Medical History (Updated 07/22/25 @ 12:30 by Mary Franklin DO) ASD (atrial septal defect) (08/2016) Alcoholic liver disease (2015) End-stage liver disease (2015) CHF (congestive heart failure) Compression fracture of L1 lumbar vertebra Surgical History History of esophagogastroduodenoscopy (EGD) (05/23/17) History of colonoscopy (05/23/17) Social History marital status: household members: spouse, significant other and friend(s) lives independently: Yes caregiver/support person: No housing: house occupational status: previously employed Smoking Status: Never smoker second hand exposure: No alcohol intake: current substance use type: does not use Assessment & Plan Assessment & Plan narrative: Pt is a 75yo woman with CHF, hypothyroidism, alcoholic cirrhosis, and HTN who presented after being found at home stuck on the couch for several days, found to be in liver failure. The decision was made yesterday to transition to comfort care. The pt has been resting without significant concerns. Oral morphine working well thus far for controlling symptoms. Will continue with this. Pts breathing more agonal this morning. Do not anticipate her living longer than 24hrs at this point. Will continue comfort measures. Time-Based Coding :: [TOTAL MINUTES] spent with patient and on the chart (including review of chart, obtaining history, exam, reviewing outside data, placing orders, documenting exam and treatment plan, and counseling patient) on [DATE]. Quality VTE Deep Vein Thrombosis/Pulmonary Embolism Present on Admission: No PROFEE Silk Examiner Document charge(s): Yes Charge Codes Subsequent inpatient/observation care: 83037
--- NOTE | 2025-07-25 12:19 | CM.DPC ---
DCP Comfort Care Per MD, pt's respirations more labored and slowed and anticipates that pt likely imminent to here in the hospital in the next 24-48 hours. Dtrs have been vigiling bedside. HEIDI spoke to Adela at [facility] ([phone]) and updated on pt status and they will hold a Hospice spot for pt on 07/28 and 07/29 for in Dtr's home in [place] in case pt stabilizes over the weekend and does not . HEIDI to update Adela and her coworker Luba at [facility] on Monday via email to [email or web address] if Hospice still needed and Mon AM they will work with family to get DME delivered and pt open to services. LIDIA Grover
[2025-07-25] MEDS: MORPHINE 10 MG/0.5 ML ORAL SYRINGE SL ×2 (12:25→14:03)
[2025-07-25] MEDS: ATROPINE 1% OPHTH 2 DROPS SL (16:26)
--- NOTE | 2025-07-26 02:35 | PC.NURSE ---
TOD 0203 Abdoulaye TUCKER and Jocelin auscultated at different times no RR and HR present. Daughter at bs.
[2025-07-26 04:19] VITALS: O2SAT 98
--- NOTE | 2025-07-26 08:25 | CM.DPNOTE ---
DCP note TRUCK HOPPER reviewed EMR per chart, pt overnight. [facility] updated [facility] to cancel referral. Will continue to follow in case additional DCP needs should arise LIDIA Hines
--- NOTE | 2025-07-26 09:06 | PM.DDS.1 ---
Discharge Summary Hospital Course Date of Admission: 07/22/25 12:29 Date of : 07/26/25 Primary care provider: Ctahy Bell MD Consults: 07/22/25 15:58 Consult to Dietitian, Adult Routine Comment: Reason For Exam: alcoholism, liver failure Discharge provider: Lyndon Anguiano MD Discharge Diagnosis: 1. Liver failure secondary to alcoholic liver disease 2. GI bleed 3. Cirrhosis Hospital Course: As noted in patient's H and P, patient found at home to be probably terminal due to her liver disease. She was admitted to the hospital and transitioned to comfort care. She was kept comfortable during her hospitalization and over the course of several days she declined and subsequently early in the morning of July 26, 2025. Family was in attendance [facility] 07/24/25 04:40 07/24/25 04:40
== END 2025-07-26 02:03 | disposition expired | DRG 432 ==
LOC: ED 12:27 → AC 12:29
PROVIDERS: Admitting Provider Family Medicine; Emergency Provider Emergency Medicine; PCP Family Medicine; Referring Provider Emergency Medicine; Visit Provider Family Medicine
DX: K70.30 Alcoholic cirrhosis of liver without ascites (principal); I85.01 Esophageal varices with bleeding; K72.00 Acute and subacute hepatic failure without coma; K76.7 Hepatorenal syndrome; D62 Acute posthemorrhagic anemia; N39.0 Urinary tract infection, site not specified; I11.0 Hypertensive heart disease with heart failure; I50.9 Heart failure, unspecified; E03.9 Hypothyroidism, unspecified; F10.20 Alcohol dependence, uncomplicated; B96.20 Unspecified Escherichia coli [E. coli] as the cause of diseases classified elsewhere; D53.9 Nutritional anemia, unspecified; Z51.5 Encounter for palliative care; Z79.890 Hormone replacement therapy; Z66 Do not resuscitate
CPT/HCPCS: 36415; 71045; 74174; 80053; 81001; 82140; 82607; 82746; 83690; 84443; 85007; 85025; 85610; 85730; 86850; 86900; 86901; 87077; 87086; 87186; 94760; 96374; 96375; 97129; 97163; 97166; 97530; 99223; 99232; 99233; 99285; 99418; A9270; J0696; J2354; J2470; J7030; J7050; Q9967